=== PATIENT | male | born 1955 | race Caucasian/White ===

== ENCOUNTER → 2017-10-18 | Outpatient (CLI) | payer OTHER ==
[~2017-10-18] MED LIST: REGADENOSON 0.4 MG/5 ML SYRINGE IV ONE
--- NOTE | 2017-10-18 11:31 | NM ---
EXAMINATION TYPE: NM stress lexiscan cardiolite DATE OF EXAM: 10/18/2017 COMPARISON: NONE HISTORY: Chest pain and hypertension per order. Additional history of tobacco use, diabetes, hypercho lesterolemia, and family history of coronary artery disease with difficulty in breathing per patient. TECHNIQUE: After the intravenous administration of 10 mCi Tc 99m Sestamibi - Cardiolite resting SPEC T images acquired 45 minutes post injection. The patient received 0.4mg Lexiscan, 25.7 mCi Tc 99m Sestamibi - Stress images obtained [address] injection FINDINGS: Review of stress and rest SPECT images demonstrates no distinct perfusion abnormality. Gated analysi s shows normal wall motion with an estimated left ventricular ejection fraction of 65 %. IMPRESSION: No scintigraphic evidence for reversible ischemia.
--- NOTE | 2017-10-18 14:10 | EST ---
EXERCISE STRESS AGE: 61 SEX: M HT: 5'11" WT: 194 PROTOCOL: Lexiscan Cardiolite Study HEART RATE REST: 69 BLOOD PRESSURE REST: 130/79 MAXIMUM HEART RATE ACHIEVED: 105 MAXIMUM BLOOD PRESSURE: 130/79 85% MPHR: 134 100% MPHR: 158 INDICATIONS: Family history. CLINICAL INFORMATION: Pretesting physical examination showed heart rate of 69, pressure is 130/79 mmHg. Baseline EKG shows sinus mechanism; 0.4 mg of Lexiscan was given over 15 seconds per protocol. The max heart rate was 105 beats per minute and maximum pressure was 130/79 mmHg. Clinically, the patient did not have any symptoms of chest pain or discomfort and the EKG did not show any significant ST or T-wave abnormalities concerning for ischemia. CONCLUSION: 1. Nondiagnostic electrocardiogram stress testing in response to Lexiscan. 2. Please follow up on the Cardiolite portion on separate report from Radiology Department. MMODL / IJN: [id number] /
== END | disposition home or self-care (01) ==
LOC: RADNMMAIN 08:08
PROVIDERS: ATTEND Internal Medicine
DX: R07.9 Chest pain, unspecified (principal); I10 Essential (primary) hypertension
CPT/HCPCS: 93017; 78452; A9500; J2785

== ENCOUNTER 2018-05-02 06:43 | Day surgery (SDC) | payer OTHER ==
[2018-04-30 14:58] VITALS: BMI 27.9
[~2018-05-02 06:43] MED LIST changes: +LACTATED RINGERS 1,000 ML IV SCH; -REGADENOSON 0.4 MG/5 ML SYRINGE IV ONE
[2018-05-02 07:18] VITALS: TEMP 97
[2018-05-02] MEDS ORDERED: LACTATED RINGERS 1,000 ML IV ONE (07:21)
[2018-05-02 07:22] LABS: Glucose,Whole Blood 119 mg/dL (75-99)
[2018-05-02] MEDS ORDERED: PROPOFOL 10 MG/ML 20 ML VIAL IV ONE (07:31)
--- NOTE | 2018-05-02 08:01 | P.PCN ---
Date of Procedure: 05/02/18 Procedure(s) Performed: BRIEF HISTORY: Patient is a 62-year-old pleasant male, scheduled for an elective colonoscopy as a part of evaluation of intermittent rectal bleeding for the last 2 months duration. ROCEDURE PERFORMED: Colonoscopy snare polypectomy . PREOPERATIVE DIAGNOSIS: rectal bleeding of 2 months duration IV sedation per Anesthesia. PROCEDURE: After informed consent was obtained, the patient, was brought into the endoscopy unit. IV sedation was administered by Anesthesia under continuous monitoring. Digital rectal examination was normal. Initially the Olympus CF- 160 flexible video colonoscope was then inserted in the rectum, gradually advanced into the cecum without any difficulty. Careful examination was performed as the scope was gradually being withdrawn. Ileocecal valve and the appendiceal orifice were visualized and appeared normal. Prep was excellent. Mucosa of the cecum, appeared normal. In the ascending colon there was a 1 cm flat polyp removed by snare polypectomy. The rest of theascending colon, transverse colon, descending colon, sigmoid colon, and rectum appeared normal. in the mid rectum there were 2 sessile ,5 mm polyps removed by snare polypectomy. diffuse diverticulosis noted.Retroflexion was performed in the rectum ansmall internal hemorrhoidsere seen. The patient tolerated the procedure well. IMPRESSION: 1 cm flat ascending colon polyp status post snare polypectomy 5 mm 2 mid rectal polyps status post snare polypectomy Diffuse scattered diverticulosis Small internal hemorrhoids RECOMMENDATIONS: Findings of this examination were discussed with the patient as well as his family. He was advised to follow with the biopsy results. If the biopsy shows adenoma, he can have a repeat colonoscopy in 5 years
[2018-05-02 08:02] VITALS: RESP 16
[2018-05-02 08:22] VITALS: BP 124/77; PULSE 86
== END 2018-05-02 08:59 | disposition home or self-care (01) ==
LOC: ORWHC2ENDO 06:43
PROVIDERS: ATTEND Internal Medicine Gastroenterology
DX: K63.5 Polyp of colon (principal); K62.1 Rectal polyp; K57.30 Diverticulosis of large intestine without perforation or abscess without bleeding; K64.8 Other hemorrhoids; I10 Essential (primary) hypertension; E78.5 Hyperlipidemia, unspecified; F17.210 Nicotine dependence, cigarettes, uncomplicated; Z79.84 Long term (current) use of oral hypoglycemic drugs; Z79.899 Other long term (current) drug therapy
CPT/HCPCS: 88305; 45385; J2704

== ENCOUNTER → 2018-10-31 | Outpatient (CLI) | payer OTHER ==
--- NOTE | 2018-10-31 20:27 | US ---
EXAMINATION TYPE: US carotid duplex BILAT DATE OF EXAM: 10/31/2018 COMPARISON: NONE CLINICAL HISTORY: 62-year-old male R09.89 carotid bruit. TECHNIQUE: Carotid duplex ultrasound examination. Indirect Doppler criteria is utilized. FINDINGS: EXAM MEASUREMENTS: RIGHT: Peak Systolic Velocity (PSV) cm/sec ----- Right CCA: 99.9 ----- Right ICA: 139 ----- Right ECA: 215 ICA/CCA ratio: 1.4 RIGHT: End Diastole cm/sec ----- Right CCA: 21.7 ----- Right ICA: 33.4 ----- Right ECA: 14.7 LEFT: Peak Systolic Velocity (PSV) cm/sec ----- Left CCA: 135 ----- Left ICA: 121 ----- Left ECA: 157 ICA/CCA ratio: .9 LEFT: End Diastole cm/sec ----- Left CCA: 28 ----- Left ICA: 32 ----- Left ECA: 13.2 VERTEBRALS (direction of flow): Right Vertebral: Antegrade Left Vertebral: Antegrade Rhythm: Normal IMPRESSION: Mildly elevated velocities in the right ICA probably on the basis of turbulence rather than a moderat e (50-69%) ICA stenosis as no significant atherosclerotic narrowing is appreciated on grayscale image s. Criteria for Assigning % of Stenosis / Diameter reduction (Estimation based on the indirect measurements of the internal carotid artery velocities (ICA PSV). 1. Normal (no stenosis)=ICA PSV < 125 cm/s: ratio < 2.0: ICA EDV<40 cm/s. 2. Less than 50% stenosis=ICA PSV < 125 cm/s: ratio < 2.0: ICA EDV<40 cm/s. 3. 50 to 69% stenosis=ICA PSV of 125 to 230 cm/s: ration 2.0 ? 4.0: ICA EDV 40-100 cm/s. 4. Greater than 70% stenosis to near occlusion= ICA PSV > 230 cm/s: ratio > 4.0: ICA EDV > 100 cm/s. 5. Near occlusion= ICA PSV velocities may be low or undetectable: variable ratio and ICA EDV. 6. Total occlusion=unable to detect flow.
== END | disposition home or self-care (01) ==
LOC: RADUSWWP 15:37
PROVIDERS: ATTEND Internal Medicine
DX: R09.89 Other specified symptoms and signs involving the circulatory and respiratory systems (principal)
CPT/HCPCS: 93880

== ENCOUNTER 2020-09-11 | Emergency (ER) | payer OTHER | END 2020-09-11 11:56 | disposition home or self-care (01) ==

== ENCOUNTER → 2020-10-17 | Outpatient (CLI) | payer OTHER ==
[2020-10-17 11:47] LABS: HCT 50.7 % (39.0-53.0); HGB 16.7 gm/dL (13.0-17.5); MCH 33.1 pg (25.0-35.0); MCHC 32.9 g/dL (31.0-37.0); MCV 100.4 fL (80.0-100.0); Macrocytosis Slight; Mean Platelet Volume 8.3; Platelet Count 194 k/uL (150-450); RBC 5.04 m/uL (4.30-5.90); RDW 13.9 % (11.5-15.5); WBC 9.5 k/uL (3.8-10.6)
[2020-10-17 12:00] LABS: African American GFR (CKD) >90 (>60 ml/min/1.73 sqM); Anion Gap 8 mmol/L; Blood Urea Nitrogen 13 mg/dL (9-20); Carbon Dioxide 29 mmol/L (22-30); Chloride 99 mmol/L (98-107); Non-African American GFR(CKD) >90 (>60 ml/min/1.73 sqM); Potassium 4.5 mmol/L (3.5-5.1); Sodium 136 mmol/L (137-145)
[2020-10-20 11:42] LABS: Folate, Serum 21.2 ng/mL
== END | disposition home or self-care (01) ==
LOC: LABPAT 11:23
PROVIDERS: ATTEND Internal Medicine Cardiovascular Disease
DX: Z01.812 Encounter for preprocedural laboratory examination (principal); I35.2 Nonrheumatic aortic (valve) stenosis with insufficiency
CPT/HCPCS: 80051; 82565; 82607; 82746; 84520; 85027

== ENCOUNTER 2020-10-24 09:17 | Day surgery (SDC) | payer OTHER ==
[2020-10-19 14:54] VITALS: BMI 28.5
[2020-10-24 09:53] VITALS: TEMP 98.8
[2020-10-24 09:53] LABS: Glucose,Whole Blood 149 mg/dL (75-99)
[2020-10-24] MEDS ORDERED: SODIUM CHLORIDE 0.9% 500 ML 500 ML IV ONE (09:53)
[2020-10-24] MEDS: BENZOCAINE SPRAY 1 CAN MUCOUS MEM ONE ×2 (10:50→10:58)
[2020-10-24] MEDS ORDERED: MIDAZOLAM 2 MG/2 ML VIAL IV ONE (10:58)
[2020-10-24] MEDS ORDERED: fentaNYL (PF) 50 MCG/ML 2 ML AMP IV ONE (10:58)
[2020-10-24 11:10] VITALS: RESP 13
[2020-10-24] MEDS ORDERED: SODIUM CHLORIDE 0.9% 1,000 ML IV SCH (11:15)
[2020-10-24 12:17] VITALS: BP 142/54; PULSE 92
--- NOTE | 2020-10-24 12:28 | ECHOT ---
TRANSESOPHAGEAL ECHOCARDIOGRAM Andres is a 64-year-old gentleman who presented to me with shortness of breath and aortic stenosis and regurgitation. Since we did not have any clear explanation for his symptoms, I advised him to undergo transesophageal echo to further assess the aortic valve. PROCEDURE NOTE: After obtaining informed consent, transesophageal echocardiogram was performed in left lateral position using an Omniplane probe. Local and IV sedation were obtained using Xylocaine spray, intravenous Versed and fentanyl. He tolerated the procedure well without any obvious immediate complications. Two-dimension color Doppler and spectral analysis were performed. FINDINGS: 1. AORTIC VALVE: Aortic valve appears to be a bicuspid valve which is calcified and shows moderate restriction in leaflet mobility. The calculated valve area is about 1.2 cm2. There is moderate to severe aortic regurgitation. Aortic root is not dilated. 2. Left atrium appears mildly enlarged. Right atrium and right ventricle seen within normal limits. Left ventricle shows left ventricular hypertrophy with normal LV systolic function. Mitral valve is anatomically normal. There is mild mitral regurgitation noted. Tricuspid valve shows mild tricuspid regurgitation. 3. INTERATRIAL SEPTUM: There is no evidence of proh-ct-vecst shunt by color-flow Doppler or zqlmq-wy-[id number] shunt by agitated saline contrast study. CONCLUSIONS: 1. Bicuspid aortic valve with mild aortic stenosis and moderate to severe aortic regurgitation. 2. Normal left ventricular size and systolic function. PLAN: I reviewed the JENNIFER findings with the patient and told his that I do not believe the shortness of breath is quite explained by the degree of aortic valvular disease we are seeing. I will perform pulmonary function tests on him and then decide on further course of action. MMODL / IJN: [id number] /
--- NOTE | 2020-10-24 13:51 | LTR ---
October 24, 2020 To: Dr. Lizama Re: Andres Davis (53) Dear Lexy, I performed transesophageal echocardiogram on Andres Davis. A detailed test is enclosed for your records. The patient has a bicuspid aortic valve with moderate to severe aortic regurgitation, mild aortic stenosis. The plan at this stage is to perform a pulmonary function test on him to see if his symptoms are explained by any underlying lung disease. Thank you for giving me the privilege of participating in the care of this pleasant gentleman. Sincerely, Victorino Wall M.D. CONSUELO / SABIHA: [id number] /
== END 2020-10-24 12:29 | disposition home or self-care (01) ==
LOC: CATHCVL 09:17
PROVIDERS: ATTEND Internal Medicine Cardiovascular Disease
DX: Q23.1 Congenital insufficiency of aortic valve (principal); E11.9 Type 2 diabetes mellitus without complications; I10 Essential (primary) hypertension; E78.5 Hyperlipidemia, unspecified; Z82.49 Family history of ischemic heart disease and other diseases of the circulatory system; F17.210 Nicotine dependence, cigarettes, uncomplicated; Z79.899 Other long term (current) drug therapy; Z79.82 Long term (current) use of aspirin
CPT/HCPCS: 93312; 93320; 93325; J2250; J3010

== ENCOUNTER 2020-11-09 08:02 | Day surgery (SDC) | payer OTHER ==
[~2020-11-09 08:02] MED LIST changes: +ALPRAZolam 0.25 MG TAB PO PRN; +ALPRAZolam 0.5 MG TAB PO PRN; +ASPIRIN 325 MG TAB PO STA; +HEPARIN SODIUM,PORCINE 10,000 UNIT in SODIUM CHLORIDE 0.9% 1,000 ML IRRIGATION PRN; +HEPARIN SODIUM,PORCINE 2,500 UNIT in SODIUM CHLORIDE 0.9% 250 ML IRRIGATION PRN; -LACTATED RINGERS 1,000 ML IV SCH; +NITROGLYCERIN SL TABS 0.4 MG TAB SUBLINGUAL PRN; +SODIUM CHLORIDE 0.9% 1,000 ML in EMPTY BAG 1 BAG IV ONE
[2020-11-09] MEDS ORDERED: ASPIRIN 81 MG ONE (08:10)
[2020-11-09] MEDS ORDERED: SODIUM CHLORIDE 0.9% 1,000 ML IV ONE (08:13)
[2020-11-09 08:29] LABS: Glucose,Whole Blood 131 mg/dL (75-99)
[2020-11-09] MEDS ORDERED: LIDOCAINE 1% INJ 10MG/ML (20 ML MDV) ONE (09:55)
[2020-11-09] MEDS ORDERED: fentaNYL (PF) 50 MCG/ML 2 ML AMP ONE (10:17)
[2020-11-09] MEDS: MIDAZOLAM 2 MG/2 ML VIAL IV ONE ×2 (10:21→10:49)
[2020-11-09] MEDS ORDERED: MIDAZOLAM 2 MG/2 ML VIAL IV ONE (10:21)
[2020-11-09] MEDS ORDERED: LIDOCAINE 1% INJ 10MG/ML (10 ML MDV) SQ ONE ×2 (10:21)
[2020-11-09] MEDS: fentaNYL (PF) 50 MCG/ML 2 ML AMP IV ONE ×2 (10:21→10:34)
[2020-11-09] MEDS ORDERED: HEPARIN SODIUM 1,000 UN/ML (10ML VL) ONE (10:35)
[2020-11-09] MEDS ORDERED: HEPARIN SODIUM 1,000 UN/ML (10ML VL) IV ONE (10:45)
[2020-11-09] MEDS ORDERED: NITROGLYCERIN 1000MCG/10ML SYRINGE INTRACORON ONE (10:56)
[2020-11-09] MEDS ORDERED: CLOPIDOGREL 75 MG TAB ONE (10:57)
[2020-11-09] MEDS ORDERED: IOPAMIDOL-370 125ML BTL INJ ONE (11:02)
[2020-11-09] MEDS ORDERED: CLOPIDOGREL 75 MG TAB PO ONE (11:02)
[2020-11-09] MEDS ORDERED: ATROPINE SULFATE 0.1 MG/ML 10ML SYRINGE IV PRN (13:33)
[2020-11-09] MEDS ORDERED: NITROGLYCERIN SL TABS 0.4 MG TAB SUBLINGUAL PRN (13:33)
[2020-11-09] MEDS ORDERED: RX INFO: IV CONTRAST WAS GIVEN 1 EACH MISC MISCELLANE PRN (13:33)
[2020-11-09] MEDS ORDERED: MAG HYDROX/AL HYDROX/SIMETH 30 ML CUP PO PRN (13:33)
[2020-11-09] MEDS ORDERED: ZOLPIDEM 5 MG TAB PO PRN (13:33)
[2020-11-09] MEDS ORDERED: SODIUM CHLORIDE 0.9% 1,000 ML IV SCH (13:45)
--- NOTE | 2020-11-09 13:55 | CC ---
CARDIAC CATHETERIZATION REPORT INDICATION: This is a 64-year-old gentleman with multiple coronary risk factors who presented to me with symptoms of shortness of breath. His stress test did not reveal ischemia and an echocardiogram showed normal LV function with aortic regurgitation. He went on to have a transesophageal echo that showed moderate to severe aortic regurgitation not bad enough to explain his shortness of breath. On followup, he told me that he was becoming progressively more short of breath due to which I advised him to undergo cardiac catheterization to rule out the possibility that his shortness of breath is anginal equivalent. The patient had been explained of risks, benefits and alternatives understood and accepted. PROCEDURE NOTE: After obtaining informed consent, left heart catheterization and coronary angiogram were performed via the right femoral artery using standard Joceline catheters. The patient tolerated the procedure well without any obvious immediate complications. Patient received moderate conscious sedation. Total sedation time was 15 minutes. FINDINGS: HEMODYNAMICS: Left ventricular end-diastolic pressure is 14-16 mm. There is no significant gradient across the aortic valve. LEFT VENTRICULOGRAM: Not performed. ANGIOGRAPHIC DATA: LEFT MAIN CORONARY ARTERY: Left main coronary artery is a normal-sized vessel and is free of stenosis. Divides into left anterior descending coronary artery and circumflex coronary artery. LEFT ANTERIOR DESCENDING CORONARY ARTERY: LAD shows a moderate area of stenosis in its midportion. Both the ramus intermedius and circumflex coronary artery are free of significant disease. RIGHT CORONARY ARTERY: Right coronary artery is a small nondominant vessel that is free of significant disease. CONCLUSION: 50-70% stenosis involving the mid LAD. PLAN: The patient will undergo FFR and if this comes out significant, we will undergo angioplasty with stent placement. MMODL / IJN: [id number] /
[2020-11-09] MEDS ORDERED: ACETAMINOPHEN TAB 325 MG TAB ONE (15:10)
--- NOTE | 2020-11-09 16:47 | PTCA ---
PERCUTANEOUSTRANS CORORONARY ANGIOGRAPHY DATE OF SERVICE: November 09, 2020. PERFORMING PHYSICIAN: Nick Pruett MD. PROCEDURE PERFORMED: 1. Fractional flow reserve of the left anterior descending artery. 2. Successful stenting of the mid left anterior descending artery using 3.25 x 18 mm Xience TAMEKA with an excellent angiographic result and reduction of stenosis from 70% to 0%. 3. Selective right common femoral artery angiogram. INDICATION: This is a 64-year-old gentleman who sees Dr. Wall in the office, with hypertension, and dyslipidemia, was experiencing symptoms of shortness of breath with exertion. He underwent earlier today a heart catheterization and that revealed intermediate lesion in the mid LAD and decision was made towards FFR of the LAD with coronary intervention. APPROACH: Right common femoral artery. COMPLICATION: None. LEVEL OF SEDATION: Moderate with sedation length of 30 minutes. PROCEDURE DESCRIPTION: Please refer to diagnostic heart catheterization was performed by Dr. Wall earlier today. Anticoagulation was initiated using heparin with continuous ACT monitoring throughout the procedure. Subsequently, and after zeroing the Doppler wire and equalizing between the Doppler wire and the guiding catheter which was JL4 guiding catheter, we did an IFR and that came in to be ischemic at 0.70. Because of that, we decided to intervene on the LAD. After assuring that the ACT is therapeutic, I did balloon angioplasty of the lesion using 3.0 x 12 mm balloon before I deployed 3.25 x 18 mm Xience drug-eluting stent where the stent was positioned under fluoroscopy guidance and deployed under 16 atmospheres for 20 seconds. The following angiogram showed excellent angiographic results. The procedure was completed without any complication. POSTPROCEDURE MANAGEMENT: 1. Dual anti-platelet therapy. 2. Aggressive cholesterol control. 3. Coronary risk factor modification. 4. Follow up with the patient. MMODL / IJN: [id number] /
[2020-11-09 17:49] LABS: Glucose,Whole Blood 170 mg/dL (75-99)
[2020-11-09 20:16] LABS: Glucose,Whole Blood 230 mg/dL (75-99)
[2020-11-09] MEDS: LINAGLIPTIN 5 MG TABLET PO SCH (20:16)
[2020-11-09] MEDS: NICOTINE 14MG/24HR PATCH TRANSDERM SCH (20:16)
[2020-11-10 06:58] VITALS: BP 130/84; PULSE 88; RESP 18; TEMP 98.3
[2020-11-10 07:29] LABS: Glucose,Whole Blood 127 mg/dL (75-99)
[2020-11-10 07:43] LABS: Basophils # (A) 0.1 k/uL (0-0.2); Basophils % (A) 1 %; Eosinophils # (A) 0.1 k/uL (0-0.7); Eosinophils % (A) 2 %; HGB 15.9 gm/dL (13.0-17.5); Lymphocytes # (A) 1.4 k/uL (1.0-4.8); Lymphocytes % (A) 16 %; MCH 33.5 pg (25.0-35.0); MCHC 33.8 g/dL (31.0-37.0); MCV 99.3 fL (80.0-100.0); Mean Platelet Volume 8.4; Monocytes # (A) 0.7 k/uL (0-1.0); Monocytes % (A) 8 %; Neutrophils # (A) 6.2 k/uL (1.3-7.7); Neutrophils % (A) 72 %; Platelet Count 194 k/uL (150-450); RBC 4.74 m/uL (4.30-5.90); RDW 13.8 % (11.5-15.5); WBC 8.6 k/uL (3.8-10.6)
[2020-11-10 08:01] LABS: African American GFR (CKD) >90 (>60 ml/min/1.73 sqM); Anion Gap 4 mmol/L; Blood Urea Nitrogen 8 mg/dL (9-20); Calcium 9.5 mg/dL (8.4-10.2); Carbon Dioxide 30 mmol/L (22-30); Chloride 103 mmol/L (98-107); Glucose 143 mg/dL (74-99); Non-African American GFR(CKD) >90 (>60 ml/min/1.73 sqM); Potassium 4.3 mmol/L (3.5-5.1); Sodium 137 mmol/L (137-145)
[2020-11-10] MEDS ORDERED: lisinopriL 5 MG TAB PO SCH (09:00)
[2020-11-10] MEDS ORDERED: PIOGLITAZONE 45 MG TAB PO SCH (09:00)
[2020-11-10] MEDS ORDERED: CLOPIDOGREL 75 MG TAB PO SCH (09:00)
[2020-11-10] MEDS ORDERED: NON FORMULARY DRUG (Empagliflozin [Jardiance] 25 MG Tablet) PO SCH (09:00)
[2020-11-10] MEDS ORDERED: ASPIRIN 81 MG PO SCH (09:00)
[2020-11-10] MEDS ORDERED: GLIMEPIRIDE 1 MG TAB PO SCH (09:00)
[2020-11-10] MEDS ORDERED: ATORVASTATIN 80 MG TAB PO SCH (09:00)
[2020-11-10] MEDS: LINAGLIPTIN 5 MG TABLET PO SCH (10:06)
[2020-11-10] MEDS: NICOTINE 14MG/24HR PATCH TRANSDERM SCH (10:08)
[2020-11-10 11:37] VITALS: BMI 28.1
--- NOTE | 2020-11-10 11:43 | P.DS ---
Providers Attending physician: Victorino Wall Consults: 11/09/20 13:33 Consult Physician Routine Consulting Provider: [facility] Consult Reason/Comments: Post Interventional patient Do you want consulting provider notified?: Already Contacted Primary care physician: Dl Pugh [facility] Hospital Course: This is a 64-year-old male who underwent cardiac catheterization yesterday with Dr. Cho. Patient also underwent PCI of the LAD by Dr. Martins. The patient is doing well post procedure with no complications. Patient's right groin is soft with no hematoma noted. His vital signs are stable. The patient was deemed stable for discharge home today per Dr. Cho. He is to follow up on an outpatient basis. Please see EMR for further hospital course details. Discharge diagnosis Coronary artery disease, status post PCI of LAD Nurse practitioner note has been reviewed by physician. Signing provider agrees with the documented findings, assessment, and plan of care. Plan - Discharge Summary Discharge Rx Participant: Yes New Discharge Prescriptions: New Atorvastatin [Lipitor] 80 mg PO DAILY #90 tab Clopidogrel [Plavix] 75 mg PO DAILY #90 tab Nitroglycerin Sl Tabs [Nitrostat] 0.4 mg SUBLINGUAL Q5M PRN #100 tab PRN Reason: Chest Pain Nicotine 14Mg/24Hr Patch [Habitrol] 1 patch TRANSDERM DAILY #14 patch Continue lisinopriL [Zestril] 5 mg PO QAM Aspirin 81 mg PO DAILY Discontinued Rosuvastatin Calcium [Crestor] 40 mg PO DAILY No Action Pioglitazone [Actos] 45 mg PO QAM Glimepiride [Amaryl] 1 mg PO QAM sitaGLIPtin PHOS/metFORMIN HCL [Janumet 50-1,000 mg Tablet] 1 each PO BID Empagliflozin [Jardiance] 25 mg PO QAM Discharge Medication List Glimepiride [Amaryl] 1 mg PO QAM 04/30/18 [History] Pioglitazone [Actos] 45 mg PO QAM 04/30/18 [History] lisinopriL [Zestril] 5 mg PO QAM 04/30/18 [History] Aspirin 81 mg PO DAILY 10/19/20 [History] Empagliflozin [Jardiance] 25 mg PO QAM 10/19/20 [History] sitaGLIPtin PHOS/metFORMIN HCL [Janumet 50-1,000 mg Tablet] 1 each PO BID 10/19/20 [History] Atorvastatin [Lipitor] 80 mg PO DAILY #90 tab 11/10/20 [Rx] Clopidogrel [Plavix] 75 mg PO DAILY #90 tab 11/10/20 [Rx] Nicotine 14Mg/24Hr Patch [Habitrol] 1 patch TRANSDERM DAILY #14 patch 11/10/20 [Rx] Nitroglycerin Sl Tabs [Nitrostat] 0.4 mg SUBLINGUAL Q5M PRN #100 tab 11/10/20 [Rx] Follow up Appointment(s)/Referral(s): [facility] [NON-STAFF] - 1 Week Victorino Wall MD [STAFF PHYSICIAN] - 1 Week Patient Instructions/Handouts: [facility]iac [facility] ([facility]) Activity/Diet/Wound Care/Special Instructions: Hold Janumet for 48 hours
[2020-11-12] MEDS ORDERED: metFORMIN 500 MG TAB PO SCH (09:00)
== END 2020-11-10 12:07 | disposition home or self-care (01) ==
LOC: CATHCVL 08:02 → 6NMEDSUR 11:07 → CATHCVL 11-10 12:07
PROVIDERS: ATTEND Internal Medicine Cardiovascular Disease
DX: I25.10 Atherosclerotic heart disease of native coronary artery without angina pectoris (principal); I35.1 Nonrheumatic aortic (valve) insufficiency; R06.02 Shortness of breath; E11.9 Type 2 diabetes mellitus without complications; I10 Essential (primary) hypertension; E78.5 Hyperlipidemia, unspecified; F17.210 Nicotine dependence, cigarettes, uncomplicated
CPT/HCPCS: 93571; 93458; 80048; 85025; C9600; C1769 ×2; C1887; C1894 ×2; C1874; S4990; J2250; J3010; J1644; J2001; Q9967

== ENCOUNTER → 2022-08-11 | Outpatient (CLI) | payer MEDICARE, BC ==
[2022-08-12 09:26] LABS: Chol/HDL Ratio 2.58 Ratio; LDL Cholesterol,Calculated 62.7 mg/dL (0.0-131.0)
[2022-08-12 09:48] LABS: ALT 19 U/L (10-49); AST 22 U/L (14-35)
== END | disposition home or self-care (01) ==
LOC: LABWHC1 08:28
PROVIDERS: ATTEND Internal Medicine Cardiovascular Disease
DX: E78.2 Mixed hyperlipidemia (principal)
CPT/HCPCS: 36415; 80061; 84450; 84460

== ENCOUNTER → 2023-02-02 | Outpatient (CLI) | payer MEDICARE, BC ==
[2023-02-02 13:08] LABS: Basophils # (A) 0.06 X 10*3/uL (0.00-0.10); Basophils % (A) 0.9 %; Eosinophils # (A) 0.17 X 10*3/uL (0.04-0.35); Eosinophils % (A) 2.5 %; HCT 52.6 % (39.6-50.0); HGB 17.3 g/dL (13.0-17.0); Lymphocytes # (A) 1.18 X 10*3/uL (0.90-5.00); Lymphocytes % (A) 17.3 %; MCH 33.5 pg (27.0-32.0); MCHC 32.9 g/dL (32.0-37.0); MCV 101.7 FL (80.0-97.0); Monocytes # (A) 0.82 X 10*3/uL (0.20-1.00); NRBC Per 100 WBC 0 X 10*3/uL (0.00-0.01); Neutrophils # (A) 4.55 X 10*3/uL (1.80-7.70); Neutrophils % (A) 66.6 %; Platelet Count 189 X 10*3/uL (140-440); RBC 5.17 X 10*6/uL (4.40-5.60); RDW 15.4 % (11.5-14.5); WBC 6.83 X 10*3/uL (4.50-10.00)
[2023-02-02 13:30] LABS: ALT 21 U/L (10-49); AST 22 U/L (14-35); Albumin 4.7 g/dL (3.8-4.9); Albumin/Globulin Ratio 1.81 Ratio (1.60-3.17); Alkaline Phosphatase 97 U/L (41-126); Blood Urea Nitrogen 13.6 mg/dL (9.0-27.0); Calcium 10.3 mg/dL (8.7-10.3); Carbon Dioxide 29.3 mmol/L (21.6-31.8); Chloride 97 mmol/L (96-109); Chol/HDL Ratio 2.06 Ratio; Globulin 2.6 g/dL (1.6-3.3); Glucose 115 mg/dL (70-110); Prostate Specific Antigen 0.65 ng/mL (0.000-4.500); Sodium 141 mmol/L (135-145); T4, Free (Free Thyroxine) 1.15 ng/dL (0.80-1.80); Total Bilirubin 0.6 mg/dL (0.3-1.2); Total Protein 7.3 g/dL (6.2-8.2)
== END | disposition home or self-care (01) ==
LOC: LABWHC1 07:58
PROVIDERS: ATTEND Family Medicine
DX: Z12.5 Encounter for screening for malignant neoplasm of prostate (principal); E78.5 Hyperlipidemia, unspecified
CPT/HCPCS: 36415; 80053; 80061; 83036; 84153; 84439; 84443; 85025

== ENCOUNTER → 2024-07-07 | Outpatient (CLI) | payer MEDICARE ==
--- NOTE | 2024-07-07 16:17 | XR ---
"EXAMINATION TYPE: XR chest 2V DATE OF EXAM: 07/07/2024 4:10 PM COMPARISON: Chest radiographs from 09/11/2020 TECHNIQUE: XR chest 2V Frontal and lateral views of the chest. CLINICAL INDICATION:Male, 68 years old with history of R04.2 HEMOPTYSIS; FINDINGS: Lungs/Pleura: No pneumothorax. No pleural effusion. The left lung is clear. Large masslike opacity wi thin the right upper to mid lung measuring 11.4 x 9.4 cm with surrounding opacities. Additionally the re is a masslike consolidation within the right perihilar region. Pulmonary vascularity: Unremarkable. Heart/mediastinum: The heart is not enlarged. Atherosclerotic calcifications are seen in the aorta. Musculoskeletal: No acute osseous pathology. IMPRESSION: Large right lung pulmonary mass with additional right perihilar masslike opacity. Findings concerning for primary lung malignancy/metastasis until proven otherwise. Further workup is recommended. Recomm end further evaluation with CT chest with IV contrast. A [place] level critical message alert has been initiated for Neo Guardado MD via the [place] [address] 0 | Critical Results System on 07/07/2024 4:14 PM. This message alert has been sent to Neo Guardado MD via the preferences provided by the clinician for the receipt of Radiology Critical Findings. Mess age ID [id number]. [facility], , 07/07/2024 4:14 PM"
== END | disposition home or self-care (01) ==
LOC: RADXRMAIN 16:02
PROVIDERS: ATTEND Family Medicine
DX: R04.2 Hemoptysis (principal); R91.8 Other nonspecific abnormal finding of lung field
CPT/HCPCS: 71046

== ENCOUNTER → 2024-07-08 | Outpatient (CLI) | payer MEDICARE ==
[2024-07-08 15:51] LABS: African American GFR (CKD) >90 (>60 ml/min/1.73 sqM); Blood Urea Nitrogen 24 mg/dL (9-20); Non-African American GFR(CKD) >90 (>60 ml/min/1.73 sqM)
--- NOTE | 2024-07-08 16:53 | CT ---
EXAMINATION TYPE: CT chest w con CT DLP: 577 mGycm, Automated exposure control for dose reduction was used. DATE OF EXAM: 07/08/2024 4:40 PM COMPARISON: Chest radiograph 07/07/2024 CLINICAL INDICATION:Male, 68 years old with history of R91.8 OTHER NONSPECIFIC ABNORMAL FINDING OF ALEXIA NG F; PHH, abnormal chest xray TECHNIQUE: Multiple axial images were obtained through the chest following the administration of 100 cc of Isovue 300. . Coronal and sagittal reformats reviewed. FINDINGS: LUNGS/ PLEURA: No pleural effusion or pneumothorax. Mild centrilobular emphysematous changes. Large l oculated masslike consolidation withe fluid and foci of gas within the right upper lobe. This measure s grossly 12.4 x 9.0 cm and extends towards the right hilum. Additional satellite nodularity superior ly. There is surrounding patchy groundglass and consolidative opacities within the right upper lobe. Few scattered pulmonary nodules with examples including a left lower lobe subpleural 3.8 mm nodule. A nd a right middle lobe 3.9 mm pulmonary nodule. Peripheral left upper lobe 4.8 mm pulmonary nodule. Pleural-based right lower lobe 1.2 mm solid pulmonary nodule. Additional peripheral left lower lobe c onsolidative opacity measuring up to 3.7 cm. AIRWAY: Patent and unremarkable.. HEART: Size within normal limits.Moderate aortic valvular calcifications. No pericardial effusion. Mi ld to moderate coronary artery calcifications present. MEDIASTINUM: Enlarged low-density right hilar lymph node measuring up to 1.4 cm. VASCULATURE: No aortic aneurysm. Atherosclerotic calcification of the aorta and its branches. MUSCULOSKELETAL: Mild disc degeneration changes are present throughout the thoracolumbar spine. No ag gressive osseous lesion. No acute osseous abnormality. At least moderate disc degenerative changes of the visualized cervical spine. SOFT TISSUES/LYMPH NODES: Bilateral gynecomastia. LOWER NECK: No significant findings. UPPER ABDOMEN: Hypodense 2.3 cm lesion within the right hepatic lobe centrally near the IVC (series 3 , image 63). Asymmetric thickening of the right adrenal gland compared to the left. IMPRESSION: 1. Right upper lobe pulmonary masslike consolidation with regions of fluid and gas. Etiologies includ e necrotic primary lung neoplasm with superimposed infectious process versus irregular pulmonary absc ess. There is surrounding consolidative and groundglass airspace opacities within the right upper lob e and adjacent nodularity suggesting infectious process. Additional few scattered pulmonary nodules c oncerning for metastasis. Left lower lobe peripheral wedge-shaped consolidative opacity which may rep resent metastasis versus infectious/inflammatory process or atelectasis. Recommend further evaluation with PET/CT and/or tissue sampling. 2. Right hepatic lobe central 2.3 cm hypodense lesion not consistent with a simple cyst. Additional a symmetric thickening of the right adrenal gland and right hilar hypodense enlarged lymph node. Raises concern for metastasis. [facility], , 07/08/2024 4:51 PM
== END | disposition home or self-care (01) ==
LOC: RADCTMAIN 14:56
PROVIDERS: ATTEND Family Medicine
DX: R91.8 Other nonspecific abnormal finding of lung field (principal); K76.89 Other specified diseases of liver; E27.9 Disorder of adrenal gland, unspecified
CPT/HCPCS: 82565; 84520; 71260; 36415; Q9967

== ENCOUNTER 2024-07-16 15:04 | Inpatient (IN) | payer MEDICARE ==
[2024-07-16] MEDS: LACTATED RINGERS 1,000 ML IV SCH (15:04)
[2024-07-16] MEDS ORDERED: VANCOMYCIN IV PER PHARMACY 1 EACH MISC MISCELLANE PRN (15:20)
--- NOTE | 2024-07-16 15:24 | ED ---
General Adult HPI - General Chief complaint: Dizziness Stated complaint: pre-op abn labs Source: patient, RN/MD Mode of arrival: wheelchair - History of Present Illness Initial comments: Patient is a 58-year-old gentleman past medical history hypertension, diabetes, CAD presenting today from the outpatient procedure center for hypotension. Patient was there about to have a bronchoscopy performed for a right lung mass when he was found to be hypotensive. Patient states that his only symptom is dizziness that he noted upon getting out of the car and the way to the ER earlier today. He states he has had a cough productive of bloody sputum since June. As well as ongoing shortness of breath since that time. He denies new symptoms, fevers, chills, chest pain, abdominal pain, nausea, vomiting, cough productive of sputum, melena, hematochezia, new wounds or sores. He did take his lisinopril this morning. He has not eaten since last night. He has had decreased intake for the last 2 months. - Related Data Home Medications Medication Instructions Recorded Confirmed Glimepiride [Amaryl] 1 mg PO HS 04/30/18 07/16/24 Pioglitazone [Actos] 45 mg PO DAILY 04/30/18 07/16/24 Aspirin 81 mg PO DAILY 10/19/20 07/16/24 Empagliflozin [Jardiance] 25 mg PO DAILY 10/19/20 07/16/24 Atorvastatin [Lipitor] 80 mg PO HS 07/14/24 07/16/24 Albuterol Sulfate [Albuterol 2 puff INHALATION RT-Q4H PRN 07/16/24 07/16/24 Sulfate Hfa] Previous Rx's Medication Instructions Recorded Acetaminophen Tab [Tylenol] 650 mg PO Q6HR PRN tab 07/20/24 Calcium Carbonate [Tums] 1,000 mg PO Q4HR PRN tab 07/20/24 Famotidine [Pepcid] 20 mg PO BID #60 tab 07/20/24 Folic Acid 1 mg PO DAILY #30 tab 07/20/24 Mag Hydrox/Al Hydrox/Simeth 15 ml PO Q6HR PRN ml 07/20/24 [Maalox] Nicotine 14Mg/24Hr Patch [Habitrol] 1 patch TRANSDERM DAILY #30 patch 07/20/24 Ciprofloxacin HCl [Cipro] 500 mg PO BID 7 Days #14 tab 07/21/24 Allergies Allergy/AdvReac Type Severity Reaction Status Date / Time No Known Allergies Allergy Verified 07/16/24 17:37 Review of Systems ROS Statement: Those systems with pertinent positive or pertinent negative responses have been documented in the HPI. ROS Other: All systems not noted in ROS Statement are negative. Past Medical History Past Medical History: Diabetes Mellitus, Hyperlipidemia, Hypertension Additional Past Medical History / Comment(s): bleeding with stools several yrs. ago, Type II DM, difficulty breathing since 2024 after a "bad cold". right lung mass July 13 History of Any Multi-Drug Resistant Organisms: None Reported Past Surgical History: Heart Catheterization With Stent, Hernia Repair Additional Past Surgical History / Comment(s): BILATERAL CATARACT SURGERY, COLONOSCOPY, JENN[facility]ER 10/24, cardiac stent 2021 Past Anesthesia/Blood Transfusion Reactions: No Reported Reaction Additional Past Anesthesia/Blood Transfusion Reaction / Comment(s): no hx blood transfusion Date of Last Stent Placement:: 2021 Past Psychological History: No Psychological Hx Reported Smoking Status: Current every day smoker Past Alcohol Use History: None Reported, Occasional Past Drug Use History: None Reported, Marijuana - Past Family History Mother Family Medical History: Hyperlipidemia, Hypertension Brother(s) Family Medical History: Coronary Artery Disease (CAD) Additional Family Medical History / Comment(s): cardiac stent General Exam - General Exam Comments Initial Comments: PE: CONSTITUTIONAL: [no apparent distress, well appearing] SKIN: [warm, dry, no jaundice, hives or petechiae] EYES:[ pupils are equally round, extraocular movements intact without nystagmus, clear conjunctiva, non-icteric sclera] HENT: [normocephalic, atraumatic, moist mucus membranes, oropharynx clear witho ut exudates] NECK: , [Full range of motion, normal appearance] PULMONARY: [clear to auscultation without wheezes, rhonchi, or rales, normal excursion, no accessory muscle use and no stridor] CARDIOVASCULAR:[ regular rate, rhythm, normal S1 and S2. No appreciated murmurs, rubs or gallops. Strong radial pulses with intact distal perfusion. No lower extremity edema] GASTROINTESTINAL: [soft, active bowel sounds throughout, non-tender, non- distended, no palpable masses, no rebound or guarding. No hepatosplenomegaly] GENITOURINARY: MUSCULOSKELETAL: [Extremities have no gross deformity, no edema, redness, or swelling. No calf swelling ] NEUROLOGIC: [_a/o x 3, GCS 15, normal mentation and speech. Moves all extremities x 4 without motor or sensory deficit] PSYCHIATRIC:[ _normal mood and affect, thought process is clear and linear] Course Vital Signs 07/16/24 07/16/24 07/16/24 15:04 15:11 15:31 Temperature 97.6 F Pulse Rate 107 H 108 H 108 H Respiratory 22 22 22 Rate Blood Pressure 88/48 94/54 88/50 O2 Sat by Pulse 96 95 96 Oximetry 07/16/24 07/16/24 07/16/24 15:50 16:06 17:00 Temperature Pulse Rate 104 H 104 H 108 H Respiratory 20 20 18 Rate Blood Pressure 83/47 95/58 113/53 O2 Sat by Pulse 96 96 95 Oximetry 07/16/24 07/16/24 07/16/24 17:32 19:50 21:35 Temperature 97.7 F Pulse Rate 110 H 111 H 112 H Respiratory 20 20 20 Rate Blood Pressure 105/46 71/48 106/55 O2 Sat by Pulse 96 97 Oximetry 07/16/24 07/17/24 07/17/24 23:17 01:04 02:29 Temperature 98.6 F Pulse Rate 102 H 112 H 98 Respiratory 17 16 16 Rate Blood Pressure 104/51 95/48 98/53 O2 Sat by Pulse 96 95 96 Oximetry 07/17/24 03:39 Temperature Pulse Rate 98 Respiratory 16 Rate Blood Pressure 100/50 O2 Sat by Pulse 95 Oximetry EKG Findings - EKG Comments: EKG Findings:: Sinus tachycardia, rate 108 bpm [place] interval 133 ms QT/QTc 320/384 ms, T wave inversion lead V1, V2, aVR, no clear ST elevations or depressions, no STEMI Medical Decision Making - Medical Decision Making Was pt. sent in by a medical professional or institution (, PA, GUNSTOCK REPAIRER, urgent care, hospital, or detention...) When possible be specific @ -No Did you speak to anyone other than the patient for history (EMS, parent, family, police, friend...)? What history was obtained from this source @ -No Did you review nursing and triage notes (agree or disagree)? Why? @ -I reviewed nursing and triage notes Were old charts reviewed (outside hosp., previous admission, EMS record, old EKG, old radiological studies, urgent care reports/EKG's, detention records)? Report findings @ -Medical records reviewed-reviewed chest CT performed on 07/08/2024, showed lobulated mass in the right lung Differential Diagnosis (chest pain, altered mental status, abdominal pain women, abdominal pain men, vaginal bleeding, weakness, fever, dyspnea, syncope, headac he, dizziness, GI bleed, back pain, seizure, CVA, palpatations, mental health, musculoskeletal)? @ -Differential diagnosis remains broad however top considerations include hypotension secondary to infection/sepsis, hypovolemia, ACS, CHF, PE, electrolyte abnormality, renal failure, anemia/hemorrhage, medications, this is not inclusive list EKG interpreted by me (3pts min.). @ -As above X-rays interpreted by me (1pt min.). @ -None done CT interpreted by me (1pt min.). I personally reviewed CT chest I see no evidence of pulmonary embolism, right sided lung mass noted U/S interpreted by me (1pt. min.). @ -None done What testing was considered but not performed or refused? (CT, X-rays, U/S, lab s)? Why? @ -None What meds were considered but not given or refused? Why? @ -None Did you discuss the management of the patient with other professionals (professionals i.e. , PA, GUNSTOCK REPAIRER, lab, RT, psych nurse, social service director, operations and intelligence assistant, teacher, forest fire officer, leather case finisher)? Give summary @ -No Was smoking cessation discussed for >3mins.? @ -No Was critical care preformed (if so, how long)? @Yes 35 minutes Were there social determinants of health that impacted care today? How? (Homelessness, low income, unemployed, alcoholism, drug addiction, transportation, low edu. Level, literacy, decrease access to med. care, care home, rehab)? @ -No Was there de-escalation of care discussed even if they declined (Discuss DNR or withdrawal of care, Hospice)? @ -No What co-morbidities impacted this encounter? (DM, HTN, Smoking, COPD, CAD, Cancer, CVA, ARF, Chemo, Hep., AIDS, mental health diagnosis, sleep apnea, morbid obesity)? @Hypertension, smoking, diabetes, CAD Was patient admitted / discharged? Hospital course, mention meds given and route, prescriptions, significant lab abnormalities, going to OR and other pertinent info. @Admission -68-year-old gentleman presenting for hypotension noted at outpatient procedure facility where he was going to have a bronchoscopy done for a right sided lung mass. Patient hypotensive on arrival and received 1 L IV fluids prior to my assessment. On my reassessment blood pressure is 94/54 with a MAP of 68. He is currently in Trendelenburg position. Exam is overall benign without signs of infection. Differential demonstrates broad, top considerations as noted above. He will be given sepsis workup including 2.5 L of LR according to his 30 cc/kg bolus, Zosyn, vancomycin, CT PE study will be obtained. On reassessment, blood pressure stabilized after 2.5 LR lactated ringer, MAP of 83 on my reassessment. Coloring is improved. CT scan shows persistent mass in the right lung with increased size and nodules. White blood cell count 55,000, hemoglobin 11.1, troponin undetectable. Of note CT chest was ultimately read as no evidence of PE however redemonstration of the large right upper lobe pulmonary mass or consolidation with regions of fluid and gas with soft tissue, etiologies include necrotic primary lung neoplasm with superimposed infectious process versus irregular pulmonary abscess, surrounding consolidative and groundglass opacities within the right upper lobe and adjacent nodularity, increased size with few new scattered pulmonary nodules throughout the lung concerning for metastases as well as a right hepatic lobe central hypodense lesion, asymmetric thickening of the right adrenal gland and right hilar hypodense enlarged lymph node concerning for metastases. Updated pt and to findings and anticipated admission. Patient will be admitted for further workup and treatment. Case discussed with LIBRADO Larson who kindly accepts pt for admission. Undiagnosed new problem with uncertain prognosis? @ -No Drug Therapy requiring intensive monitoring for toxicity (Heparin, Nitro, Insulin, Cardizem)? @ -No Were any procedures done? @ -No Diagnosis/symptom? @ -Sepsis, lung mass, questionable pulmonary abscess Acute, or Chronic, or Acute on Chronic? @ acute Uncomplicated (without systemic symptoms) or Complicated (systemic symptoms)? @ complicated Side effects of treatment? @ -No Exacerbation, Progression, or Severe Exacerbation? @ -No Poses a threat to life or bodily function? How? (Chest pain, USA, MD, pneumonia, PE, COPD, DKA, ARF, appy, cholecystitis, CVA, Diverticulitis, Homicidal, Suicidal, threat to staff... and all critical care pts) @Yes, if left untreated could lead to septic shock and - Lab Data Result diagrams: 07/21/24 07:00 07/21/24 07:00 Lab Results 07/16/24 07/16/24 07/16/24 Range/Units 15:23 15:40 15:40 WBC 55.76 H* (4.50-10.00) 10*3/uL RBC 3.46 L (4.40-5.60) 10*6/uL Hgb 11.1 L (13.0-17.0) g/dL Hct 33.4 L (39.6-50.0) % MCV 96.5 (80.0-97.0) fL MCH 32.1 H (27.0-32.0) pg MCHC 33.2 (32.0-37.0) g/dL Plt Count 374 (140-440) 10*3/uL MPV 10.1 (9.5-12.2) fL Immature Gran % (Auto) 3.4 % Neutrophils % (Manual) 90 % Band Neuts % (Manual) 1 % Lymphocytes % (Manual) 4 % Monocytes % (Manual) 4 % Metamyelocytes % 1 % Myelocytes % 1 % Immature Gran # 1.92 H (0.00-0.04) 10*3/uL Neutrophils # (Manual) 50.74 H (1.3-7.7) k/uL Lymphocytes # (Manual) 2.23 (1.0-4.8) k/uL Monocytes # (Manual) 2.23 H (0-1.0) k/uL Metamyelocytes # (Man) 0.56 H (0) k/uL Myelocytes # (Manual) 0.56 H (0) k/uL Nucleated RBCs 0 (0-0) /100 WBC Manual Slide Review Performed Toxic Vacuolation Present Large Platelets Present Polychromasia Present PT 10.8 (10.0-12.5) sec INR 1.0 (<1.2) APTT 23.4 (22.0-30.0) sec Sodium (137-145) mmol/L Potassium (3.5-5.1) mmol/L Chloride (98-107) mmol/L Carbon Dioxide (22-30) mmol/L Anion Gap mmol/L BUN (9-20) mg/dL Creatinine (0.66-1.25) mg/dL Est GFR (CKD-EPI)AfAm (>60 ml/min/1.73 sqM) Est GFR (CKD-EPI)NonAf (>60 ml/min/1.73 sqM) Glucose (74-99) mg/dL Plasma Lactic Acid Biju (0.7-2.0) mmol/L Calcium (8.4-10.2) mg/dL Total Bilirubin (0.2-1.3) mg/dL AST (17-59) U/L ALT (4-49) U/L Alkaline Phosphatase (38-126) U/L Troponin I (0.000-0.034) ng/mL Total Protein (6.3-8.2) g/dL Albumin (3.5-5.0) g/dL Urine Color Urine Appearance (Clear) Urine pH (5.0-8.0) Ur Specific [place] (1.001-1.035) Urine Protein (Negative) Urine Glucose (UA) (Negative) Urine Ketones (Negative) Urine Blood (Negative) Urine Nitrite (Negative) Urine Bilirubin (Negative) Urine Urobilinogen (<2.0) mg/dL Ur Leukocyte Esterase (Negative) Influenza Type A (PCR) Not Detected (Not Detectd) Influenza Type B (PCR) Not Detected (Not Detectd) RSV (PCR) Not Detected (Not Detectd) SARS-CoV-2 (PCR) Not Detected (Not Detectd) 07/16/24 07/16/24 07/16/24 Range/Units 15:40 15:40 15:40 WBC (4.50-10.00) 10*3/uL RBC (4.40-5.60) 10*6/uL Hgb (13.0-17.0) g/dL Hct (39.6-50.0) % MCV (80.0-97.0) fL MCH (27.0-32.0) pg MCHC (32.0-37.0) g/dL Plt Count (140-440) 10*3/uL MPV (9.5-12.2) fL Immature Gran % (Auto) % Neutrophils % (Manual) % Band Neuts % (Manual) % Lymphocytes % (Manual) % Monocytes % (Manual) % Metamyelocytes % % Myelocytes % % Immature Gran # (0.00-0.04) 10*3/uL Neutrophils # (Manual) (1.3-7.7) k/uL Lymphocytes # (Manual) (1.0-4.8) k/uL Monocytes # (Manual) (0-1.0) k/uL Metamyelocytes # (Man) (0) k/uL Myelocytes # (Manual) (0) k/uL Nucleated RBCs (0-0) /100 WBC Manual Slide Review Toxic Vacuolation Large Platelets Polychromasia PT (10.0-12.5) sec INR (<1.2) APTT (22.0-30.0) sec Sodium 132 L (137-145) mmol/L Potassium 4.9 (3.5-5.1) mmol/L Chloride 96 L (98-107) mmol/L Carbon Dioxide 30 (22-30) mmol/L Anion Gap 6 mmol/L BUN 25 H (9-20) mg/dL Creatinine 0.71 (0.66-1.25) mg/dL Est GFR (CKD-EPI)AfAm >90 (>60 ml/min/1.73 sqM) Est GFR (CKD-EPI)NonAf >90 (>60 ml/min/1.73 sqM) Glucose 139 H (74-99) mg/dL Plasma Lactic Acid Biju 1.3 (0.7-2.0) mmol/L Calcium 9.1 (8.4-10.2) mg/dL Total Bilirubin 0.8 (0.2-1.3) mg/dL AST 28 (17-59) U/L ALT 15 (4-49) U/L Alkaline Phosphatase 240 H (38-126) U/L Troponin I <0.012 (0.000-0.034) ng/mL Total Protein 5.9 L (6.3-8.2) g/dL Albumin 3.0 L (3.5-5.0) g/dL Urine Color Urine Appearance (Clear) Urine pH (5.0-8.0) Ur Specific [place] (1.001-1.035) Urine Protein (Negative) Urine Glucose (UA) (Negative) Urine Ketones (Negative) Urine Blood (Negative) Urine Nitrite (Negative) Urine Bilirubin (Negative) Urine Urobilinogen (<2.0) mg/dL Ur Leukocyte Esterase (Negative) Influenza Type A (PCR) (Not Detectd) Influenza Type B (PCR) (Not Detectd) RSV (PCR) (Not Detectd) SARS-CoV-2 (PCR) (Not Detectd) 07/16/24 Range/Units 17:30 WBC (4.50-10.00) 10*3/uL RBC (4.40-5.60) 10*6/uL Hgb (13.0-17.0) g/dL Hct (39.6-50.0) % MCV (80.0-97.0) fL MCH (27.0-32.0) pg MCHC (32.0-37.0) g/dL Plt Count (140-440) 10*3/uL MPV (9.5-12.2) fL Immature Gran % (Auto) % Neutrophils % (Manual) % Band Neuts % (Manual) % Lymphocytes % (Manual) % Monocytes % (Manual) % Metamyelocytes % % Myelocytes % % Immature Gran # (0.00-0.04) 10*3/uL Neutrophils # (Manual) (1.3-7.7) k/uL Lymphocytes # (Manual) (1.0-4.8) k/uL Monocytes # (Manual) (0-1.0) k/uL Metamyelocytes # (Man) (0) k/uL Myelocytes # (Manual) (0) k/uL Nucleated RBCs (0-0) /100 WBC Manual Slide Review Toxic Vacuolation Large Platelets Polychromasia PT (10.0-12.5) sec INR (<1.2) APTT (22.0-30.0) sec Sodium (137-145) mmol/L Potassium (3.5-5.1) mmol/L Chloride (98-107) mmol/L Carbon Dioxide (22-30) mmol/L Anion Gap mmol/L BUN (9-20) mg/dL Creatinine (0.66-1.25) mg/dL Est GFR (CKD-EPI)AfAm (>60 ml/min/1.73 sqM) Est GFR (CKD-EPI)NonAf (>60 ml/min/1.73 sqM) Glucose (74-99) mg/dL Plasma Lactic Acid Biju (0.7-2.0) mmol/L Calcium (8.4-10.2) mg/dL Total Bilirubin (0.2-1.3) mg/dL AST (17-59) U/L ALT (4-49) U/L Alkaline Phosphatase (38-126) U/L Troponin I (0.000-0.034) ng/mL Total Protein (6.3-8.2) g/dL Albumin (3.5-5.0) g/dL Urine Color Light Yellow Urine Appearance Clear (Clear) Urine pH 6.0 (5.0-8.0) Ur Specific [place] 1.036 H (1.001-1.035) Urine Protein Negative (Negative) Urine Glucose (UA) 4+ H (Negative) Urine Ketones 1+ H (Negative) Urine Blood Negative (Negative) Urine Nitrite Negative (Negative) Urine Bilirubin Negative (Negative) Urine Urobilinogen <2.0 (<2.0) mg/dL Ur Leukocyte Esterase Negative (Negative) Influenza Type A (PCR) (Not Detectd) Influenza Type B (PCR) (Not Detectd) RSV (PCR) (Not Detectd) SARS-CoV-2 (PCR) (Not Detectd) Disposition Clinical Impression: Lung mass, Sepsis Disposition: ADMITTED IP TO THIS HOSP Condition: Fair
[2024-07-16] MEDS: VANCOMYCIN 1,500 MG in SODIUM CHLORIDE 0.9% 500 ML 500 ML IVPB STA (15:48)
[2024-07-16] MEDS: PIPERACILLIN-TAZOBACTAM 3.375 GM in SODIUM CHLORIDE 0.9% 100 ML IVPB STA (15:51)
[2024-07-16 15:52] LABS: HCT 33.4 % (39.6-50.0); HGB 11.1 g/dL (13.0-17.0); MCH 32.1 pg (27.0-32.0); MCHC 33.2 g/dL (32.0-37.0); MCV 96.5 fL (80.0-97.0); Mean Platelet Volume 10.1 fL (9.5-12.2); Platelet Count 374 10*3/uL (140-440); RBC 3.46 10*6/uL (4.40-5.60); RDW 15.9 % (11.5-14.5)
[2024-07-16 16:01] LABS: Partial Thromboplastin Time 23.4 sec (22.0-30.0); Prothrombin Time 10.8 sec (10.0-12.5)
[2024-07-16 16:23] LABS: ALT 15 U/L (4-49); AST 28 U/L (17-59); African American GFR (CKD) >90 (>60 ml/min/1.73 sqM); Alkaline Phosphatase 240 U/L (38-126); Anion Gap 6 mmol/L; Blood Urea Nitrogen 25 mg/dL (9-20); Calcium 9.1 mg/dL (8.4-10.2); Carbon Dioxide 30 mmol/L (22-30); Chloride 96 mmol/L (98-107); Glucose 139 mg/dL (74-99); Non-African American GFR(CKD) >90 (>60 ml/min/1.73 sqM); Potassium 4.9 mmol/L (3.5-5.1); Sodium 132 mmol/L (137-145); Total Bilirubin 0.8 mg/dL (0.2-1.3); Total Protein 5.9 g/dL (6.3-8.2)
[2024-07-16 16:25] LABS: WBC 55.76 10*3/uL (4.50-10.00)
[2024-07-16 16:35] LABS: Influenza A Not Detected (Not Detectd); Influenza B Not Detected (Not Detectd); RSV Not Detected (Not Detectd)
[2024-07-16 16:40] LABS: Band Neutrophils % 1 %; Lymphocytes # (M) 2.23 k/uL (1.0-4.8); Metamyelocytes # (M) 0.56 k/uL (0); Metamyelocytes % 1 %; Monocytes # (M) 2.23 k/uL (0-1.0); Myelocytes # (M) 0.56 k/uL (0); Myelocytes % 1 %; Neutrophils # (M) 50.74 k/uL (1.3-7.7); Neutrophils % (M) 90 %; Nucleated Red Blood Cells 0 /100 WBC (0-0); Polychromasia Present; Total Cells Counted 200
[2024-07-16 16:41] LABS: Large Platelets Present; Toxic Vacuolation Present
--- NOTE | 2024-07-16 17:18 | CT ---
EXAMINATION TYPE: CT chest angio for PE CT DLP: 341.7 mGycm, Automated exposure control for dose reduction was used. DATE OF EXAM: 07/16/2024 5:00 PM COMPARISON: CT chest 07/08/2024, chest radiograph 07/07/2024 CLINICAL INDICATION:Male, 68 years old with history of Shortness of breath; shortness of breath TECHNIQUE/CONTRAST: CTA scan of the thorax is performed with IV Contrast, patient injected with 100 mL of Isovue 370, pul monary embolism protocol. MIP images are created and reviewed. FINDINGS: Pulmonary Artery: There is no evidence for a filling defect within the pulmonary vasculature to sugge st acute pulmonary embolism. The pulmonary artery is of normal size. The right upper lobe pulmonary arteries are encased by the mass like consolidation Lungs/Pleura: Mild centrilobular emphysematous changes. No pleural effusion or pneumothorax. Similar large masslike consolidation soft tissue, gas and fluid within the right upper lobe with extension in to the hilum. There are several scattered pulmonary nodules which have slightly increased in size fro m prior exam with example including a right middle lobe nodule now measuring up to 7 mm, previously 4 mm. A pleural-based right lower lobe medial 1.5 cm pulmonary nodule, previously measured 1.2 cm. Sim ilar left lower lobe pleural-based 3.7 cm pulmonary nodular density, previously measured 3.5 cm. Enla rged right lower lobe 1.2 cm pulmonary nodule, previously measured 0.6 cm. New medial right upper lob e 6 mm pulmonary nodule additional smaller new pulmonary nodules. AIRWAY: Patent and unremarkable.. HEART: Size within normal limits.Moderate aortic valvular calcifications. No pericardial effusion. Mi ld to moderate coronary artery calcifications present. MEDIASTINUM: Enlarged low-density right hilar lymph node measuring up to 1.7 cm. Again VASCULATURE: No aortic aneurysm. Atherosclerotic calcification of the aorta and its branches. MUSCULOSKELETAL: Mild disc degeneration changes are present throughout the thoracolumbar spine. No ag gressive osseous lesion. No acute osseous abnormality. At least moderate disc degenerative changes of the visualized cervical spine. SOFT TISSUES/LYMPH NODES: Bilateral gynecomastia. LOWER NECK: No significant findings. UPPER ABDOMEN: Similar 2.5 cm hypodense lesion within the right hepatic lobe centrally near the IVC ( series 401, image 153). Similar asymmetric thickening of the right adrenal gland compared to the left . IMPRESSION: 1. No evidence of pulmonary embolism. 2. Redemonstration of large right upper lobe pulmonary masslike consolidation with regions of fluid a nd gas with soft tissue. Etiologies include necrotic primary lung neoplasm with superimposed infectio us process versus irregular pulmonary abscess again. There is surrounding consolidative and groundgla ss airspace opacities within the right upper lobe and adjacent nodularity. There is increased size wi th few new scattered pulmonary nodules throughout the lungs concerning for metastasis. Recommend furt her evaluation with PET/CT and/or tissue sampling. 3. Right hepatic lobe central hypodense lesion redemonstrated. Additional asymmetric thickening of th e right adrenal gland and right hilar hypodense enlarged lymph node. These are concerning for metasta sis. Recommend further evaluation with PET/CT. [facility], , 07/16/2024 5:16 PM
[2024-07-16] MEDS: NICOTINE 21MG/24HR PATCH TRANSDERM STA (17:49)
[2024-07-16 18:02] LABS: Appearance,Urine Clear (Clear); Bilirubin,Urine Negative (Negative); Blood,Urine Negative (Negative); Color,Urine Light Yellow; Glucose,Urine (UA) 4+ (Negative); Ketones,Urine 1+ (Negative); Leukocyte Esterase,Urine Negative (Negative); Nitrite,Urine Negative (Negative); Protein,Urine Negative (Negative); Specific Gravity,Urine 1.036 (1.001-1.035); Urobilinogen,Urine <2.0 mg/dL (<2.0)
[2024-07-16] MEDS ORDERED: ACETAMINOPHEN TAB 325 MG TAB PO PRN (18:12)
[2024-07-16] MEDS ORDERED: HYDROcodone/APAP 5-325MG 1 EACH TAB PO PRN (18:12)
[2024-07-16] MEDS ORDERED: CALCIUM CARBONATE 500 MG CHEWABLE PO PRN (18:12)
[2024-07-16] MEDS ORDERED: MAG HYDROX/AL HYDROX/SIMETH 30 ML CUP PO PRN (18:12)
[2024-07-16] MEDS ORDERED: NALOXONE 0.4 MG/ML 1 ML VIAL IV PRN (18:12)
[2024-07-16] MEDS: GLIMEPIRIDE 1 MG TAB PO SCH (21:02)
[2024-07-16] MEDS: ATORVASTATIN 80 MG TAB PO SCH (21:03)
[2024-07-16] MEDS: FAMOTIDINE 20 MG TAB PO SCH (21:03)
[2024-07-16] MEDS: LACTATED RINGERS 1,000 ML IV ONE (21:04)
[2024-07-16] MEDS: SODIUM CHLORIDE 0.9% 1,000 ML IV SCH (21:05)
[2024-07-16] MEDS: HYDROmorphone 1 MG/ML 1 ML SYRINGE IVP PRN (22:10)
[2024-07-17 08:02] LABS: HCT 33.6 % (39.6-50.0); MCH 32.7 pg (27.0-32.0); MCHC 32.7 g/dL (32.0-37.0); Mean Platelet Volume 10.6 fL (9.5-12.2); Platelet Count 379 10*3/uL (140-440); RBC 3.36 10*6/uL (4.40-5.60); RDW 15.9 % (11.5-14.5); WBC 43.91 10*3/uL (4.50-10.00)
[2024-07-17] MEDS: ASPIRIN 81 MG PO SCH (08:09)
[2024-07-17] MEDS: DAPAGLIFLOZIN PROPANEDIOL 10 MG TABLET PO SCH (08:09)
[2024-07-17] MEDS: VANCOMYCIN 1,500 MG in SODIUM CHLORIDE 0.9% 500 ML 500 ML IVPB SCH (08:09)
[2024-07-17] MEDS: PIPERACILLIN-TAZOBACTAM 3.375 GM in SODIUM CHLORIDE 0.9% 100 ML IVPB SCH (08:10)
[2024-07-17 08:11] LABS: African American GFR (CKD) >90 (>60 ml/min/1.73 sqM); Non-African American GFR(CKD) >90 (>60 ml/min/1.73 sqM)
[2024-07-17 08:32] LABS: Anion Gap 4 mmol/L; Blood Urea Nitrogen 15 mg/dL (9-20); Calcium 8.7 mg/dL (8.4-10.2); Carbon Dioxide 32 mmol/L (22-30); Chloride 99 mmol/L (98-107); Glucose 123 mg/dL (74-99); Potassium 4.1 mmol/L (3.5-5.1); Sodium 135 mmol/L (137-145)
[2024-07-17] MEDS: ALBUTEROL NEBULIZED 2.5 MG/3 ML INHALATION PRN (09:08)
[2024-07-17 09:45] LABS: Anisocytosis (M) Present; Lymphocytes # (M) 1.32 k/uL (1.0-4.8); Monocytes # (M) 2.63 k/uL (0-1.0); Neutrophils # (M) 39.96 k/uL (1.3-7.7); Neutrophils % (M) 91 %; Nucleated Red Blood Cells 0 /100 WBC (0-0); Total Cells Counted 100
[2024-07-17 11:57] LABS: Basophils # (A) 0.15 10*3/uL (0.00-0.10); Basophils % (A) 0.4 %; Eosinophils # (A) 0.13 10*3/uL (0.04-0.35); Eosinophils % (A) 0.3 %; HGB 10.7 g/dL (13.0-17.0); Lymphocytes # (A) 1.59 10*3/uL (0.90-5.00); Lymphocytes % (A) 3.8 %; MCH 32.3 pg (27.0-32.0); MCHC 32.4 g/dL (32.0-37.0); MCV 99.7 fL (80.0-97.0); Monocytes # (A) 1.67 10*3/uL (0.20-1.00); Neutrophils # (A) 36.54 10*3/uL (1.80-7.70); Neutrophils % (A) 87.8 %; Platelet Count 350 10*3/uL (140-440); RBC 3.31 10*6/uL (4.40-5.60); RDW 15.9 % (11.5-14.5)
[2024-07-17 11:58] LABS: ALT 14 U/L (4-49); AST 19 U/L (17-59); African American GFR (CKD) >90 (>60 ml/min/1.73 sqM); Albumin 2.8 g/dL (3.5-5.0); Alkaline Phosphatase 184 U/L (38-126); Anion Gap 7 mmol/L; Blood Urea Nitrogen 12 mg/dL (9-20); Calcium 8.7 mg/dL (8.4-10.2); Carbon Dioxide 29 mmol/L (22-30); Chloride 99 mmol/L (98-107); Glucose 108 mg/dL (74-99); Non-African American GFR(CKD) >90 (>60 ml/min/1.73 sqM); Potassium 4.1 mmol/L (3.5-5.1); Sodium 135 mmol/L (137-145); Total Bilirubin 0.7 mg/dL (0.2-1.3); Total Protein 5.4 g/dL (6.3-8.2)
[2024-07-17] MEDS: IV FLUID CONTINUATION 900 ML IV ONE (12:07)
[2024-07-17] MEDS: DEXAMETHASONE SOD PHOSPHATE 4 MG/ML 1 ML VIAL IVP STA (12:09)
[2024-07-17] MEDS: ONDANSETRON 4 MG/2 ML VIAL IVP PRN (12:09)
[2024-07-17] MEDS ORDERED: PHENYLEPHRINE-0.9% NACL SYG 1,000 MCG/10 ML SYRINGE ONE (12:25)
[2024-07-17] MEDS ORDERED: NEOSTIGMINE 1 MG/ML 10 ML VIAL ONE (12:25)
[2024-07-17] MEDS ORDERED: GLYCOPYRROLATE 0.2 MG/ML 2 ML VIAL ONE (12:25)
[2024-07-17] MEDS ORDERED: PROPOFOL 10 MG/ML 20 ML VIAL IV ONE (12:25)
[2024-07-17] MEDS ORDERED: LIDOCAINE HCL/PF 20 MG/ML 10 ML AMP ONE (12:25)
[2024-07-17] MEDS ORDERED: ROCURONIUM 10 MG/ML (5 ML VIAL) IV ONE (12:25)
[2024-07-17] MEDS ORDERED: SUCCINYLCHOLINE CHLORIDE 200 MG/10 ML VIAL IV ONE (12:25)
[2024-07-17 12:43] LABS: Anisocytosis (M) Present
[2024-07-17] MEDS: IV FLUID CONTINUATION 1,000 ML IV ONE ×2 (13:38→14:13)
--- NOTE | 2024-07-17 14:47 | FL ---
EXAMINATION TYPE: FL bronchoscopy DATE OF EXAM: 07/17/2024 FLUOROSCOPY RT UPPER LOBE BIOPSY. [address] Nelson. 1 image is submitted. [facility], , 07/17/2024 2:45 PM
[2024-07-17] MEDS: PIOGLITAZONE 45 MG TAB PO SCH (15:12)
[2024-07-17] MEDS ORDERED: LORazepam 0.5 MG TAB PO PRN (16:22)
--- NOTE | 2024-07-17 16:35 | P.CNPUL ---
History of Present Illness Consult date: 07/17/24 Reason for consult: lung mass History of present illness: This is a 68-year-old male patient with a large right upper lobe mass who initially presented to my office on 07/10/2024 for ongoing respiratory complaints of cough and episodes of hemoptysis has been going on for the past several months. The patient was coughing on some bright light blood and small amounts. He was also getting progressively more short of breath. Chest x-ray was done on outpatient basis and the patient was found to have a masslike consolidation in the right upper lobe along with regions of gas and fluid. The findings are highly suspicious for malignancy. Abscess was considered to be less likely. There was also some areas of consolidation and groundglass airspace around the right upper lobe which was concerning for infection versus lymphangitic spread. The patient also had another 2.3 cm hypodense lesion in the right hepatic lobe consistent with cysts. There was also asymmetry in the adrenal glands. He was having constitutional symptoms with around 12 pounds weight loss over the past several months he is a chronic smoker smokes around 1 pack of cigarettes a day. He retired last year. 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 No history of any recurrent pneumonias. No fever. No chills. He is known to have coronary artery disease and has undergone previous coronary stenting of the LAD back in 2020, maintained on a combination of aspirin and Plavix. He also has bicuspid aortic valve with mild aortic stenosis and moderate aortic regurgitation based on the JENNIFER that was done few years back. The patient was supposed to have an outpatient bronchoscopy and preoperatively, the patient was noted to be hypotensive. His systolic blood pressure was in the low 80s and high 70s. He was also having sinus tachycardia. Based on that, the procedure was canceled and the patient was admitted to the hospital via emergency department. Blood work shows a white cell count of 55.7 with a hemoglobin of 11.1 and a platelet count of 374. The patient had 90% neutrophilia. Normal coagulation profile. Normal renal function. Normal LFTs. Troponin was less than 0.01. Procalcitonin level was less than 0.2. UA was negative. Viral screen was negative. The patient was given IV fluids and his blood pressure responded nicely. He was started on a combination of Zosyn and vancomycin. This morning, the patient seems to be quite comfortable on 2 L of oxygen by nasal cannula. The white cell count was essentially on the decline and based on that it was decided to proceed with a bronchoscopy. A CTA of the chest was done yesterday in the emergency department that showed no evidence of any pulm embolism. There was redemonstration of a large right upper lobe masslike consolidation with regions of gas and fluid and soft tissue. This could be potentially necrotic neoplasm although an irregular pulmonary abscess cannot be completely ruled out. There is also increase in size of few new s cattered pulmonary nodules throughout the lung concerning for metastases. Review of Systems Constitutional: Reports fatigue, Reports weakness, Reports weight loss Eyes: denies as per HPI, denies blurred vision, denies bulging eye, denies decreased vision, denies diplopia, denies discharge, denies dry eye, denies irritation, denies itching, denies pain, denies photophobia, denies loss of peripheral vision, denies loss of vision, denies tunnel vision/blind spots Ears: deny: decreased hearing, ear discharge, earache, tinnitus Ears, nose, mouth and throat: Reports as per HPI Breasts: absent: as per HPI, gynecomastia Cardiovascular: Reports decreased exercise tolerance, Reports dyspnea on exertion Respiratory: Reports cough, Reports dyspnea, Reports hemoptysis Gastrointestinal: Reports as per HPI Genitourinary: Reports as per HPI Musculoskeletal: Reports as per HPI Musculoskeletal: absent: ankle pain, ankle stiffness, ankle swelling, as per HPI, elbow pain, elbow stiffness, elbow swelling, foot pain, foot stiffness, foot swelling, hand pain, hand stiffness, hand swelling, hip pain, hip stiffness, hip swelling, knee pain, knee stiffness, knee swelling, shoulder pain, shoulder stiffness, shoulder swelling, wrist pain, wrist stiffness, wrist swelling Integumentary: Reports as per HPI Neurological: Reports as per HPI Psychiatric: Reports as per HPI Endocrine: Reports as per HPI Hematologic/Lymphatic: Reports as per HPI Allergic/Immunologic: Reports as per HPI Past Medical History Past Medical History: Coronary Artery Disease (CAD), Diabetes Mellitus, Hyperlipidemia, Hypertension Additional Past Medical History / Comment(s): bleeding with stools several yrs. ago, Type II DM, difficulty breathing since 2024 after a "bad cold". right lung mass July 13 History of Any Multi-Drug Resistant Organisms: None Reported Past Surgical History: Heart Catheterization With Stent, Hernia Repair Additional Past Surgical History / Comment(s): BILATERAL CATARACT SURGERY, COLONOSCOPY, JENNIFER 10/24, cardiac stent 2021 Past Anesthesia/Blood Transfusion Reactions: No Reported Reaction Additional Past Anesthesia/Blood Transfusion Reaction / Comment(s): no hx blood transfusion Date of Last Stent Placement:: 2021 Past Psychological History: No Psychological Hx Reported Smoking Status: Current every day smoker Past Alcohol Use History: None Reported, Occasional Additional Past Alcohol Use History / Comment(s): started smoking at age 14, SMOKES 1ppd 2 DRINKS A DAY Past Drug Use History: None Reported, Marijuana Additional Drug Use History / Comment(s): uses marijuana occasionally - Past Family History Mother Family Medical History: Hyperlipidemia, Hypertension Brother(s) Family Medical History: Coronary Artery Disease (CAD) Additional Family Medical History / Comment(s): cardiac stent Medications and Allergies Home Medications Medication Instructions Recorded Confirmed Type Glimepiride [Amaryl] 1 mg PO HS 04/30/18 07/16/24 History Pioglitazone [Actos] 45 mg PO DAILY 04/30/18 07/16/24 History lisinopriL [Zestril] 5 mg PO DAILY 04/30/18 07/16/24 History Aspirin 81 mg PO DAILY 10/19/20 07/16/24 History Empagliflozin [Jardiance] 25 mg PO DAILY 10/19/20 07/16/24 History Atorvastatin [Lipitor] 80 mg PO HS 07/14/24 07/16/24 History Albuterol Sulfate [Albuterol 2 puff INHALATION RT-Q4H PRN 07/16/24 07/16/24 History Sulfate Hfa] Allergies Allergy/AdvReac Type Severity Reaction Status Date / Time No Known Allergies Allergy Verified 07/16/24 17:37 Physical Exam Vitals: Vital Signs Temp Pulse Pulse Resp BP BP Pulse Ox 07/17/24 14:07 98 16 110/54 94 L 07/17/24 13:53 95 16 98/54 96 07/17/24 13:38 97.5 F L 98 16 135/63 98 07/17/24 11:57 97.9 F 96 16 111/54 96 07/17/24 09:17 87 07/17/24 09:11 98 07/17/24 09:09 96 07/17/24 08:25 98.5 F 103 H 18 99/63 95 07/17/24 03:56 98.4 F 102 H 18 105/50 98 07/17/24 03:39 98 16 100/50 95 07/17/24 02:29 98.6 F 98 16 98/53 96 07/17/24 01:04 112 H 16 95/48 95 07/16/24 23:17 102 H 17 104/51 96 07/16/24 21:35 112 H 20 106/55 97 07/16/24 19:50 97.7 F 111 H 20 71/48 96 07/16/24 17:32 110 H 20 105/46 07/16/24 17:00 108 H 18 113/53 95 Intake and Output 07/17/24 07/17/24 07/17/24 06:59 14:59 22:59 Intake Total 950 Output Total 400 400 Balance -400 550 Intake: IV 950 Output: Urine 400 400 Other: Voiding Method Toilet Urinal Weight 82 kg The patient appeared well nourished and normally developed. Vital signs as documented. Comfortable on 2 days of oxygen by nasal cannula Head exam is unremarkable. No scleral icterus or corneal arcus noted. Neck is without jugular venous distension, thyromegaly, or carotid bruits. Carotid upstrokes are brisk bilaterally. Lungs are clear to auscultation and percussion. Diminished breath sounds in the lungs right more than left. Cardiac exam reveals the PMI to be normally sized and situated. Rhythm is regular. First and second heart sounds normal. No murmurs, rubs or gallops. Abdominal exam reveals normal bowel sounds, no masses, no organomegaly and no aortic enlargement. Extremities are nonedematous and both femoral and pedal pulses are normal. Examination of the skin revealed no evidence of significant rashes, suspicious appearing nevi or other concerning lesions. Neurologically, the patient is awake and alert and the patient does not have any focal neurological deficit. Cranial nerves are essentially intact. Results - Laboratory Findings CBC and BMP: 07/17/24 11:32 07/17/24 11:32 PT/INR, D-dimer PT 10.8 sec (10.0-12.5) 07/16/24 15:40 INR 1.0 (<1.2) 07/16/24 15:40 Abnormal lab findings: Abnormal Labs 07/16/24 07/16/24 07/16/24 15:40 15:40 17:30 WBC 55.76 H* RBC 3.46 L Hgb 11.1 L Hct 33.4 L MCV MCH 32.1 H Immature Gran # 1.92 H Neutrophils # Neutrophils # (Manual) 50.74 H Monocytes # Monocytes # (Manual) 2.23 H Basophils # Metamyelocytes # (Man) 0.56 H Myelocytes # (Manual) 0.56 H Sodium 132 L Chloride 96 L Carbon Dioxide BUN 25 H Creatinine Glucose 139 H Alkaline Phosphatase 240 H Total Protein 5.9 L Albumin 3.0 L Ur Specific [place] 1.036 H Urine Glucose (UA) 4+ H Urine Ketones 1+ H 07/17/24 07/17/24 07/17/24 06:27 06:27 11:32 WBC 43.91 H 41.60 H RBC 3.36 L 3.31 L Hgb 11.0 L 10.7 L Hct 33.6 L 33.0 L MCV 100.0 H 99.7 H MCH 32.7 H 32.3 H Immature Gran # 1.72 H 1.52 H Neutrophils # 36.54 H Neutrophils # (Manual) 39.96 H Monocytes # 1.67 H Monocytes # (Manual) 2.63 H Basophils # 0.15 H Metamyelocytes # (Man) Myelocytes # (Manual) Sodium 135 L Chloride Carbon Dioxide 32 H BUN Creatinine 0.61 L Glucose 123 H Alkaline Phosphatase Total Protein Albumin Ur Specific [place] Urine Glucose (UA) Urine Ketones 07/17/24 11:32 WBC RBC Hgb Hct MCV MCH Immature Gran # Neutrophils # Neutrophils # (Manual) Monocytes # Monocytes # (Manual) Basophils # Metamyelocytes # (Man) Myelocytes # (Manual) Sodium 135 L Chloride Carbon Dioxide BUN Creatinine 0.49 L Glucose 108 H Alkaline Phosphatase 184 H Total Protein 5.4 L Albumin 2.8 L Ur Specific [place] Urine Glucose (UA) Urine Ketones - Diagnostic Findings Chest x-ray: image reviewed CT scan - chest: image reviewed Assessment and Plan Plan: Right upper lobe mass. Initial CAT scan of the chest showed a 12.4 x 9 cm mass occupying the majority of the right upper lobe extending into the right hilum. Within the mass, there is areas of fluid and gas and there is also some surrounding area of consolidation. Obviously, the findings are highly suspicious for necrotic neoplasm involving the right upper lobe although the possibility of a superinfection or a lung abscess cannot be completely ruled out. The patient was hospitalized for hypotension and tachycardia and the bronchoscopy that was scheduled on 07/16/2024 was canceled due to hypotension and tachycardia. Overnight, the patient was started IV fluids and his history much more comfortable. Repeat CAT scan of the chest was done redemonstrating the same findings in the right upper lobe with few scattered nodular densities consistent with metastatic disease. As mentioned, findings are highly suspicious for malignancy especially the patient has been having episodes of hemoptysis recalcitrant symptoms of weight loss and worsening shortness of breath. He is a chronic smoker, carries [id number] smoking history Hemoptysis secondary to above Hypotension/tachycardia. Rule out underlying infection/sepsis, responded to IV fluids. The patient is currently on a combination of Zosyn and vancomycin. Acute leukocytosis, improving. Procalcitonin level is not elevated. This could be potentially also reactive/leukemoid reaction to malignancy Coronary artery disease with previous coronary stenting of the LAD back in 2020 History of bicuspid aortic valve with mild aortic stenosis and moderate aortic r egurgitation Hyperlipidemia Diabetes mellitus type 2 COPD, FEV1 of 41% of predicted, 1.37 L. Plan Titrate oxygen flow to maintain saturation above 90%, currently on 2 L Hemodynamically stable Continue IV fluids Continue IV Zosyn and vancomycin Bronchoscopy and right upper lobe biopsy of the bronchioloalveolar lavage is to be done today Will make further recommendations based on the findings. Plavix is on hold Continue the rest of the home medications Patient is currently n.p.o. and preparation for bronchoscopy today Will follow Time with Patient: Greater than 30
--- NOTE | 2024-07-17 16:40 | P.PCN ---
Date of Procedure: 07/17/24 Operative Findings: Preoperative Diagnosis: Right upper lobe mass Postoperative Diagnosis: Right upper lobe mass Procedure(s) Performed: Flexible bronchoscopy Robotic-assisted bronchoscopy and addition to radial ultrasound evaluation of the right upper lobe mass Robotic-assisted transbronchial transbronchial needle aspirate, transbronchial biopsies bronchioloalveolar lavage of the right upper lobe mass Endobronchial ultrasound Anesthesia: MANJEET Surgeon: Juan Jose Nelson Estimated Blood Loss (ml): 0 Pathology: other Condition: stable Disposition: same day Operative Findings: A physical exam was performed. Informed consent was obtained from the patient after explaining all the risks (pneumothorax, life threatening bleeding, infection and adverse effects due to medications), benefits and alternatives to the procedure which the patient appeared to understand and so stated. The patient was connected to the monitoring devices. General anesthesia was induced and the patient was intubated by anesthesia. A final timeout was performed and the procedure confirmed by the attending staff bronchoscopist. The bronchoscope was inserted and the airway examined. Airway examination shows that the distal trachea, Right upper lobe and middle lobe and lower lobe bronchi was all within normal limits. Patient left mainstem bronchus is within normal limits. Examination of left lower lobe was within normal limits. The left upper lobe bronchus and the lingular segment was also patent within normal limits. There was retained secretions in the patient's airway and those secretions were essentially bloody, originating from the right upper lobe. No active bleeding identified. The flexible bronchoscope was removed and the robotic bronchoscope was inserted. Registration was completed. I next guided the robotic bronchoscope using the navigation system into the right right upper lobe mass. Once in proper position, the bronchoscope was frozen. The radial EBUS probe was placed through the bronchoscope and confirmed abnormal u/s images vs normal lung. A needle was placed through the working channel and another fluoroscopic guidance, we sampled the area in the right lower lobe where the opacity was present. We then used a cloud biopsy pattern with ultrasound confirmation for 2 additional passes with the needle. Following that, a forceps were next introduced through working channel and extended the appropriate dista nce and 3 transbronchial biopsies were performed using fluoroscopic guidance. The u/s probe was then reinserted to confirm location. When confirmed this process was repeated for a total of 8-10 transbronchial biopsies. Following that, a total of 80 cc of saline was infused into the right upper lobe and approximately 20 cc of saline was aspirated and the bronchial lavage was sent for cytologic evaluation and cultures. Flex. bronchoscope was inserted and regular suctioning was done. At the completion of the procedure, no residual secretions or bloody material within the airway. The bronchoscope was removed. The patient was extubated. FINDINGS: 1.The airways appeared normal, there was evidence of bloody secretions originating from the right upper lobe and also retained throughout the airway specially on the right side 2 Successful navigation, ultrasonographic identification, and biopsies of right right upper lobe mass. 3.The the radial ultrasound view was concentric
--- NOTE | 2024-07-17 17:37 | XR ---
EXAMINATION TYPE: XR chest 1V portable DATE OF EXAM: 07/17/2024 5:31 PM COMPARISON: Chest radiograph 07/17/2024. CLINICAL INDICATION: Male, 68 years old with history of chf; [facility] TECHNIQUE: XR chest 1V portable Frontal view of the chest. FINDINGS: Cardiac silhouette is stable from prior study. Masslike consolidative changes in the right mid/upper lung measuring approximately 11.1 x 9.6 cm, not significantly changed from recent study 07/07/2024. No pneumothorax. No acute pathology identified in the left lung. No sizable left pleural effusion. IMPRESSION: No significant interval changes from recent study 07/07/2024. [facility], , 07/17/2024 5:34 PM
[2024-07-17] MEDS: IOPAMIDOL CONTRAST (ORAL USE) VIAL PO PRN (20:34)
[2024-07-17] MEDS: HEPARIN SODIUM,PORCINE 5,000 UNIT/ML 1 ML VIAL SQ SCH (20:35)
[2024-07-17] MEDS: ALPRAZolam 0.25 MG TAB PO PRN (23:03)
--- NOTE | 2024-07-17 23:56 | CT ---
EXAM: CT Head Without Intravenous Contrast CLINICAL HISTORY: ITS.REASON CT Reason: stroke TECHNIQUE: Axial computed tomography images of the head/brain without intravenous contrast. CTDI is 49.1 mGy and DLP is 1245.4 mGy-cm. This CT exam was performed using one or more of the following dose reduction techniques: automated exposure control, adjustment of the mA and/or kV according to patient size, and/or use of iterative reconstruction technique. COMPARISON: No relevant prior studies available. FINDINGS: Brain: Age-related parenchymal volume loss. Mild chronic small vessel ischemic change. Tyler-white matter differentiation maintained. No hemorrhage, mass effect, parenchymal edema, or midline shift. Ventricles: No hydrocephalus. Bones/joints: No acute fracture. Soft tissues: Unremarkable. Vasculature: Intracranial atherosclerosis. Sinuses: Retention cyst left maxillary sinus. Mastoid air cells: No significant mastoid effusion. Orbits: Lens replacements. IMPRESSION: No acute intracranial process.
--- NOTE | 2024-07-18 00:03 | CT ---
EXAM: CT Abdomen and Pelvis Without Intravenous Contrast CLINICAL HISTORY: ITS.REASON CT Reason: mets? TECHNIQUE: Axial computed tomography images of the abdomen and pelvis without intravenous contrast. CTDI is 13.9 mGy and DLP is 889.5 mGy-cm. This CT exam was performed using one or more of the following dose reduction techniques: automated exposure control, adjustment of the mA and/or kV according to patient size, and/or use of iterative reconstruction technique. COMPARISON: CT chest 07/16/24 FINDINGS: Lung bases: Reported separately. ABDOMEN: Liver: Hypodense medial right hepatic lobe lesion measuring 3 cm (axial 32). Gallbladder and bile ducts: Contracted gallbladder. No stones. No ductal dilation. Pancreas: Unremarkable. No ductal dilation. Spleen: Unremarkable. No splenomegaly. Adrenals: Right adrenal nodule measuring 3 cm. Kidneys and ureters: No hydronephrosis or radiopaque stones. Simple right kidney cyst; no follow-up indicated. Stomach and bowel: No bowel obstruction. Colonic diverticulosis. No diverticulitis. PELVIS: Appendix: Normal appendix. Bladder: Unremarkable. No stones. Reproductive: Unremarkable as visualized. ABDOMEN and PELVIS: Intraperitoneal space: Unremarkable. No free fluid or free air. Bones/joints: Lumbar spondylosis. No suspicious bone lesions. No acute fracture. No dislocation. Soft tissues: Small fat-containing umbilical hernia. Vasculature: Atherosclerosis. No abdominal aortic aneurysm. Lymph nodes: Unremarkable. No enlarged lymph nodes. Other findings: Oral contrast administered. IMPRESSION: 1. Hypodense medial right hepatic lobe lesion measuring 3 cm. Metastasis is possible. 2. Right adrenal nodule measuring 3 cm. Metastasis is possible.
--- NOTE | 2024-07-18 00:19 | HP ---
HISTORY AND PHYSICAL CHIEF COMPLAINT: Incessant cough and dizziness. HISTORY OF PRESENT ILLNESS: This 68-year-old gentleman with a past medical history of multiple medical history including hypertension, diabetes, hyperlipidemia, symptomatic for the last several weeks. The patient had a cough and upper respiratory symptoms. Because of lack of improvement, the patient was scheduled for bronchoscopy. The patient was symptomatic. The patient was evaluated in the ER with extremely high white count and a chest CTA was also done, which showed large right upper lobe pulmonary mass like consolidation with soft tissues, possibly necrotic indicating possibly lung abscess. Right hepatic lobe center lesions also noted and the patient is being admitted for further evaluation and treatment. There is no history of fever, rigors, or chills at this time. PAST MEDICAL HISTORY: History of diabetes, hypertension, hyperlipidemia. HOME MEDICATIONS: Zestril. Doses and rest of medications reviewed. ALLERGIES: None. FAMILY HISTORY: Hypertension, hyperlipidemia, and cardiac stent. SOCIAL HISTORY: History of THC. Remote history of smoking. REVIEW OF SYSTEMS: A 14-point review of systems is negative except as mentioned earlier. PHYSICAL EXAMINATION: VITAL SIGNS: Pulse is 95, blood pressure 98/54, and respirations 16. HEENT: Conjunctivae normal. NECK: No JVD. CARDIOVASCULAR: S1,S2. RESPIRATIONS: Bilateral scattered rhonchi and crackles. Expiratory wheezing. ABDOMEN: Soft and nontender. LEGS: No edema. NERVOUS SYSTEM: Nonfocal. LABORATORY DATA: Reviewed. ASSESSMENT: 1. Right-sided lung abscess, possibly with sepsis present on admission. 2. Status post bronchoscopy. 3. Microcytic anemia. 4. Hepatic lesion, rule out malignancy. 5. History of EtOH. 6. Diabetes mellitus, type 2. 7. Hypertension. 8. Hyperlipidemia. 9. History of nicotine dependence. 10.Multiple complex medical issues. RECOMMENDATIONS: This 68-year-old gentleman presented with multiple complex medical issues. We will monitor the patient closely. I would recommend broad-spectrum IV antibiotics. Infectious Disease, Pulmonary consultations. We will continue to monitor. I would also recommend CT of the abdomen and pelvis and CT brain also to complete the workup. Prognosis extremely guarded because of multiple complex medical issues. Further recommendations to follow. See orders for details. MMODL / IJN: [id number] /
[2024-07-18] MEDS: PANTOPRAZOLE 40 MG TABLET PO SCH (06:02)
[2024-07-18 06:15] LABS: Glucose,Whole Blood 148 mg/dL (70-110)
[2024-07-18 08:44] LABS: HCT 35.6 % (39.6-50.0); HGB 11.3 g/dL (13.0-17.0); MCH 31.9 pg (27.0-32.0); MCHC 31.7 g/dL (32.0-37.0); MCV 100.6 fL (80.0-97.0); Mean Platelet Volume 10.4 fL (9.5-12.2); Platelet Count 392 10*3/uL (140-440); RBC 3.54 10*6/uL (4.40-5.60); RDW 15.8 % (11.5-14.5)
[2024-07-18 09:04] LABS: WBC 54.65 10*3/uL (4.50-10.00)
[2024-07-18 09:11] LABS: African American GFR (CKD) >90 (>60 ml/min/1.73 sqM); Anion Gap 8 mmol/L; Blood Urea Nitrogen 11 mg/dL (9-20); Calcium 8.5 mg/dL (8.4-10.2); Carbon Dioxide 28 mmol/L (22-30); Chloride 99 mmol/L (98-107); Glucose 166 mg/dL (74-99); Non-African American GFR(CKD) >90 (>60 ml/min/1.73 sqM); Potassium 3.9 mmol/L (3.5-5.1); Sodium 135 mmol/L (137-145)
[2024-07-18 11:08] LABS: Lymphocytes # (M) 3.83 k/uL (1.0-4.8); Monocytes # (M) 1.09 k/uL (0-1.0); Neutrophils # (M) 49.73 k/uL (1.3-7.7); Neutrophils % (M) 91 %; Nucleated Red Blood Cells 0 /100 WBC (0-0); Total Cells Counted 100
[2024-07-18 11:09] LABS: Anisocytosis (M) Present
[2024-07-18 11:46] LABS: Glucose,Whole Blood 309 mg/dL (70-110)
[2024-07-18] MEDS ORDERED: POTASSIUM CHLORIDE ER 20 MEQ TAB.ER PO STA (13:02)
[2024-07-18] MEDS ORDERED: DEXTROSE 50% SYRINGE 50 ML IVP PRN ×2 (13:04)
--- NOTE | 2024-07-18 16:14 | P.CONS ---
History of Present Illness - Reason for Consult Consult date: 07/18/24 RUL lung mass - Chief Complaint Cough, hemoptysis - History of Present Illness Mr. Davis is a 68-year-old gentleman with a past medical history significant for CAD and cigarette smoking for whom we are consulted with regards to suspicious right upper lung mass. He notes having cough and hemoptysis that initially started towards the end of 2023 and became more persistent over the past month. He was referred to pulmonology, where CT of the chest on 07/08/2024 noted right upper lobe masslike consolidation with regions of fluid and gas in addition to scattered bilateral pulmonary nodules and right hilar lymphadenopathy. In addition, there was suspicion for a right hepatic lobe lesion and thickening of the right adrenal gland. He was arranged to have outpatient bronchoscopy, but was noted to have hypotension, with bronchoscopy being aborted and being admitted to [facility]. Labs on admission were notable for WBC 55.76 (ANC 50.14), hemoglobin 11.1, platelets 374. CTA of the chest on admission from 07/16/2024 revealed no evidence of pulmonary embolism, but did note known right upper lobe masslike consolidation in addition to pulmonary nodules that appeared enlarged compared to prior CT. CT of the brain without contrast on 07/17/2024 revealed no suspicious findings. CT abdomen/pelvis performed this morning on 07/18/2024 noted 3 cm right hepatic lobe lesion in addition to right adrenal gland thickening measuring 3 cm. Since admission, he notes improvement with his breathing. He continues to have intermittent episodes of zeny hemoptysis. He denies any fevers, chills, night sweats, lymphadenopathy. He did have weight loss of approximately 15 pounds since May 2024. He has smoked 1 pack of cigarettes daily for 55 years and was smoking prior to admission. 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 Review of Systems 14 point review of systems was conducted pertinent positives and negatives as noted per HPI Past Medical History Past Medical History: Coronary Artery Disease (CAD), Diabetes Mellitus, Hyperlipidemia, Hypertension Additional Past Medical History / Comment(s): bleeding with stools several yrs. ago, Type II DM, difficulty breathing since 2024 after a "bad cold". right lung mass July 13 History of Any Multi-Drug Resistant Organisms: None Reported Past Surgical History: Heart Catheterization With Stent, Hernia Repair Additional Past Surgical History / Comment(s): BILATERAL CATARACT SURGERY, COLONOSCOPY, JENNIFER 10/24, cardiac stent 2021 Past Anesthesia/Blood Transfusion Reactions: No Reported Reaction Additional Past Anesthesia/Blood Transfusion Reaction / Comm: no hx blood transfusion Date of Last Stent Placement:: 2021 Past Psychological History: No Psychological Hx Reported Smoking Status: Current every day smoker Past Alcohol Use History: None Reported, Occasional Additional Past Alcohol Use History / Comment(s): started smoking at age 14, SMOKES 1ppd 2 DRINKS A DAY Past Drug Use History: None Reported, Marijuana Additional Drug Use History / Comment(s): uses marijuana occasionally - Past Family History Mother Family Medical History: Hyperlipidemia, Hypertension Brother(s) Family Medical History: Coronary Artery Disease (CAD) Additional Family Medical History / Comment(s): cardiac stent Medications and Allergies Home Medications Medication Instructions Recorded Confirmed Type Glimepiride [Amaryl] 1 mg PO HS 04/30/18 07/16/24 History Pioglitazone [Actos] 45 mg PO DAILY 04/30/18 07/16/24 History lisinopriL [Zestril] 5 mg PO DAILY 04/30/18 07/16/24 History Aspirin 81 mg PO DAILY 10/19/20 07/16/24 History Empagliflozin [Jardiance] 25 mg PO DAILY 10/19/20 07/16/24 History Atorvastatin [Lipitor] 80 mg PO HS 07/14/24 07/16/24 History Albuterol Sulfate [Albuterol 2 puff INHALATION RT-Q4H PRN 07/16/24 07/16/24 History Sulfate Hfa] Allergies Allergy/AdvReac Type Severity Reaction Status Date / Time No Known Allergies Allergy Verified 07/16/24 17:37 Physical Exam Vitals: Vital Signs Temp Pulse Resp BP Pulse Ox 07/18/24 14:00 101 H 18 07/18/24 12:26 101 H 18 115/67 96 07/18/24 09:46 98.2 F 101 H 20 93/59 98 07/18/24 09:45 101 H 20 07/18/24 04:00 98.2 F 101 H 20 99/61 96 07/18/24 02:00 101 H 20 07/18/24 00:00 97.6 F 104 H 20 91/51 95 07/17/24 20:00 97.9 F 101 H 20 91/52 95 07/17/24 17:00 102 H 20 117/64 95 Intake and Output 07/18/24 07/18/24 07/18/24 06:59 14:59 22:59 Intake Total 1500 20 Output Total 1350 700 725 Balance 150 680 -725 Intake: IV 20 Invasive Line 1 20 Intake, IV Titration 1500 Amount Piperacillin-Tazobactam 3 100 .375 gm In Sodium Chloride 0.9% 100 ml @ 25 mls/hr IVPB Q8HR [facility] Rx# :[id number] Sodium Chloride 0.9% 1, 900 000 ml @ 75 mls/hr IV . [id number] [facility] Rx#:[id number] Vancomycin 1,500 mg In 500 Sodium Chloride 0.9% 500 ml 500 ml @ 167 mls/hr IVPB Q12H [facility] Rx#: [id number] Output: Urine 1350 700 725 Other: Voiding Method Urinal Urinal # Voids 2 Weight 81.5 kg - Constitutional General appearance: no acute distress - Respiratory Respiratory: bilateral: wheezing - Cardiovascular Rhythm: regular - Gastrointestinal General gastrointestinal: soft, no tenderness - Integumentary Integumentary: no rash - Neurologic Neurologic: CNII-XII intact - Psychiatric Psychiatric: A&O x's 3 Results CBC & Chem 7: 07/18/24 08:12 07/18/24 08:12 Labs: Abnormal Lab Results - Last 24 Hours (Table) 07/18/24 07/18/24 07/18/24 Range/Units 06:14 08:12 08:12 WBC 54.65 H* (4.50-10.00) 10*3/uL RBC 3.54 L (4.40-5.60) 10*6/uL Hgb 11.3 L (13.0-17.0) g/dL Hct 35.6 L (39.6-50.0) % MCV 100.6 H (80.0-97.0) fL MCHC 31.7 L (32.0-37.0) g/dL Immature Gran # 1.97 H (0.00-0.04) 10*3/uL Neutrophils # (Manual) 49.73 H (1.3-7.7) k/uL Monocytes # (Manual) 1.09 H (0-1.0) k/uL Sodium 135 L (137-145) mmol/L Creatinine 0.55 L (0.66-1.25) mg/dL Glucose 166 H (74-99) mg/dL POC Glucose (mg/dL) 148 H (70-110) mg/dL 07/18/24 Range/Units 11:42 WBC (4.50-10.00) 10*3/uL RBC (4.40-5.60) 10*6/uL Hgb (13.0-17.0) g/dL Hct (39.6-50.0) % MCV (80.0-97.0) fL MCHC (32.0-37.0) g/dL Immature Gran # (0.00-0.04) 10*3/uL Neutrophils # (Manual) (1.3-7.7) k/uL Monocytes # (Manual) (0-1.0) k/uL Sodium (137-145) mmol/L Creatinine (0.66-1.25) mg/dL Glucose (74-99) mg/dL POC Glucose (mg/dL) 309 H (70-110) mg/dL Microbiology - Last 24 Hours (Table) 07/17/24 12:30 Acid Fast Bacilli Smear - Preliminary Bronchoalviolar Lavage - Right 07/16/24 17:46 Gram Stain - Preliminary Sputum Sputum Culture - Preliminary Gram Neg Bacilli 07/17/24 12:30 Gram Stain - Preliminary Bronchoalviolar Lavage - Right Bronchial Washings Culture - Preliminary 07/16/24 15:40 Blood Culture - Preliminary Blood Assessment and Plan (1) Mass of upper lobe of right lung Current Visit: Yes Status: Acute Code(s): R91.8 - OTHER NONSPECIFIC ABNORMAL FINDING OF LUNG FIELD SNOMED Code(s): 767320938 (2) Leukemoid reaction Current Visit: Yes Status: Acute Code(s): D72.823 - LEUKEMOID REACTION SNOMED Code(s): 58707347 (3) Normocytic anemia Current Visit: Yes Status: Acute Code(s): D64.9 - ANEMIA, UNSPECIFIED SNOMED Code(s): 128590593 Plan: #Right lung mass - Presented with intermittent cough and hemoptysis that became more persistent over the past month - CT chest on 07/08/2024 noted suspicious right upper lobe lung mass with fluid and gas in addition to smaller bilateral pulmonary nodules and right hilar lymp hadenopathy - Outpatient bronchoscopy attempted on 07/16/2024 was aborted due to hypotension and was subsequently admitted and started on IV antibiotics - He had bronchoscopy performed inpatient with biopsy of the right upper lobe pending - In addition, CT abdomen/pelvis on 07/18/2024 noted suspicious right hepatic lobe and right adrenal gland nodule - Given the radiographic findings, there is concern for metastatic primary lung cancer - The suspicion for malignancy was discussed on today's visit - We will await results of final pathology - If there is a primary lung cancer, biopsy samples can be sent for molecular profiling and PD-L1 testing - In addition, he would also need brain MRI to complete staging workup #Leukemoid reaction - He has neutrophilic leukocytosis likely due to suspected malignancy with superimposed infection as sputum was growing gram-negative bacilli - Continue antibiotics per primary team - No additional workup is needed for this at this time #Normocytic anemia - Likely secondary to inflammation from infection and malignancy - Anemia workup has been ordered from today's blood draw to rule out other etiologies Art Florian MD Time with Patient: Greater than 30 (Imaging studies reviewed prior to visit)
[2024-07-18 16:37] LABS: Glucose,Whole Blood 246 mg/dL (70-110)
[2024-07-18] MEDS ORDERED: VANCOMYCIN TROUGH DUE 1 EACH MISC MISCELLANE ONE (17:00)
[2024-07-18] MEDS: NICOTINE 14MG/24HR PATCH TRANSDERM SCH (17:25)
[2024-07-18] MEDS: INSULIN LISPRO (HumaLOG) 100 UNIT/ML 10 mL VL SQ SCH (17:25)
--- NOTE | 2024-07-18 19:26 | P.PN ---
Subjective Progress Note Date: 07/18/24 This is a 68-year-old male patient with a large right upper lobe mass who initially presented to my office on 07/10/2024 for ongoing respiratory complaints of cough and episodes of hemoptysis has been going on for the past several months. The patient was coughing on some bright light blood and small amounts. He was also getting progressively more short of breath. Chest x-ray was done on outpatient basis and the patient was found to have a masslike consolidation in the right upper lobe along with regions of gas and fluid. The findings are highly suspicious for malignancy. Abscess was considered to be less likely. There was also some areas of consolidation and groundglass airspace around the right upper lobe which was concerning for infection versus lymphangitic spread. The patient also had another 2.3 cm hypodense lesion in the right hepatic lobe consistent with cysts. There was also asymmetry in the adrenal glands. He was having constitutional symptoms with around 12 pounds weight loss over the past several months he is a chronic smoker smokes around 1 pack of cigarettes a day. He retired last year. 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 No history of any recurrent pneumonias. No fever. No chills. He is known to have coronary artery disease and has undergone previous coronary stenting of the LAD back in 2020, maintained on a combination of aspirin and Plavix. He also has bicuspid aortic valve with mild aortic stenosis and moderate aortic regurgitation based on the JENNIFER that was done few years back. The patient was supposed to have an outpatient bronchoscopy and preoperatively, the patient was noted to be hypotensive. His systolic blood pressure was in the low 80s and high 70s. He was also having sinus tachycardia. Based on that, the procedure was canceled and the patient was admitted to the hospital via emergency department. Blood work shows a white cell count of 55.7 with a hemoglobin of 11.1 and a platelet count of 374. The patient had 90% neutrophilia. Normal coagulation profile. Normal renal function. Normal LFTs. Troponin was less than 0.01. Procalcitonin level was less than 0.2. UA was negative. Viral screen was negative. The patient was given IV fluids and his blood pressure responded nicely. He was started on a combination of Zosyn and vancomycin. This morning, the patient seems to be quite comfortable on 2 L of oxygen by nasal cannula. The white cell count was essentially on the decline and based on that it was decided to proceed with a bronchoscopy. A CTA of the chest was done yesterday in the emergency department that showed no evidence of any pulm embolism. There was redemonstration of a large right upper lobe masslike consolidation with regions of gas and fluid and soft tissue. This could be potentially necrotic neoplasm although an irregular pulmonary abscess cannot be completely ruled out. There is also increase in size of few new scattered pulmonary nodules throughout the lung concerning for metastases. On 07/18/2024, the patient is post bronchoscopy and right upper lobe biopsy. Also, a BAL of the right upper lobe was done. Meanwhile, the sputum sample was positive for gram-negative bacillus and the bronchioloalveolar lavage from the right upper lobe results are still pending. The patient remains IV Zosyn. Remains on oxygen at 3 L with a pulse ox of 99%. Afebrile at this point. Hemodynamically stable. The white cell count remains elevated at 54 with the hemoglobin of 11.3 and a platelet count of 392. Sodium level is at 135, BUN 11 with a creatinine 0.5. Procalcitonin was less than 0.2. TSH is at 2.3.CAT scan of the abdomen and pelvis was also done and the patient was found to have hypodense right hepatic lobe lesion measuring 3 cm, right adrenal nodule measuring 3 cm. Both are suggestive of metastases. Objective - Vital Signs Vital signs: Vital Signs Temp 98.2 F 07/18/24 09:46 Pulse 101 H 07/18/24 09:46 Resp 20 07/18/24 09:46 BP 93/59 07/18/24 09:46 Pulse Ox 98 07/18/24 09:46 FiO2 Intake & Output 07/17/24 07/18/24 07/18/24 18:59 06:59 18:59 Intake Total 950 1500 10 Output Total 400 1350 Balance 550 150 10 Weight 81.5 kg Intake: IV 950 10 Invasive Line 1 10 Intake, IV Titration 1500 Amount Piperacillin-Tazobactam 3 100 .375 gm In Sodium Chloride 0.9% 100 ml @ 25 mls/hr IVPB Q8HR [facility] Rx# :[id number] Sodium Chloride 0.9% 1, 900 000 ml @ 75 mls/hr IV . [id number] [facility] Rx#:[id number] Vancomycin 1,500 mg In 500 Sodium Chloride 0.9% 500 ml 500 ml @ 167 mls/hr IVPB Q12H [facility] Rx#: [id number] Output: Urine 400 1350 Other: Voiding Method Toilet Urinal Urinal Urinal # Voids 1 2 - Exam The patient appeared well nourished and normally developed. Vital signs as documented. Comfortable on 3 L of oxygen by nasal cannula Head exam is unremarkable. No scleral icterus or corneal arcus noted. Neck is without jugular venous distension, thyromegaly, or carotid bruits. Carotid upstrokes are brisk bilaterally. Lungs are clear to auscultation and percussion. Diminished breath sounds in the lungs right more than left. Cardiac exam reveals the PMI to be normally sized and situated. Rhythm is regular. First and second heart sounds normal. No murmurs, rubs or gallops. Abdominal exam reveals normal bowel sounds, no masses, no organomegaly and no aortic enlargement. Extremities are nonedematous and both femoral and pedal pulses are normal. Examination of the skin revealed no evidence of significant rashes, suspicious appearing nevi or other concerning lesions. Neurologically, the patient is awake and alert and the patient does not have any focal neurological deficit. Cranial nerves are essentially intact. - Labs CBC & Chem 7: 07/18/24 08:12 07/18/24 08:12 Labs: Abnormal Lab Results - Last 24 Hours (Table) 07/17/24 07/17/24 07/18/24 Range/Units 11:32 11:32 06:14 WBC 41.60 H (4.50-10.00) 10*3/uL RBC 3.31 L (4.40-5.60) 10*6/uL Hgb 10.7 L (13.0-17.0) g/dL Hct 33.0 L (39.6-50.0) % MCV 99.7 H (80.0-97.0) fL MCH 32.3 H (27.0-32.0) pg MCHC (32.0-37.0) g/dL Immature Gran # 1.52 H (0.00-0.04) 10*3/uL Neutrophils # 36.54 H (1.80-7.70) 10*3/uL Neutrophils # (Manual) (1.3-7.7) k/uL Monocytes # 1.67 H (0.20-1.00) 10*3/uL Monocytes # (Manual) (0-1.0) k/uL Basophils # 0.15 H (0.00-0.10) 10*3/uL Sodium 135 L (137-145) mmol/L Creatinine 0.49 L (0.66-1.25) mg/dL Glucose 108 H (74-99) mg/dL POC Glucose (mg/dL) 148 H (70-110) mg/dL Alkaline Phosphatase 184 H (38-126) U/L Total Protein 5.4 L (6.3-8.2) g/dL Albumin 2.8 L (3.5-5.0) g/dL 07/18/24 07/18/24 Range/Units 08:12 08:12 WBC 54.65 H* (4.50-10.00) 10*3/uL RBC 3.54 L (4.40-5.60) 10*6/uL Hgb 11.3 L (13.0-17.0) g/dL Hct 35.6 L (39.6-50.0) % MCV 100.6 H (80.0-97.0) fL MCH (27.0-32.0) pg MCHC 31.7 L (32.0-37.0) g/dL Immature Gran # 1.97 H (0.00-0.04) 10*3/uL Neutrophils # (1.80-7.70) 10*3/uL Neutrophils # (Manual) 49.73 H (1.3-7.7) k/uL Monocytes # (0.20-1.00) 10*3/uL Monocytes # (Manual) 1.09 H (0-1.0) k/uL Basophils # (0.00-0.10) 10*3/uL Sodium 135 L (137-145) mmol/L Creatinine 0.55 L (0.66-1.25) mg/dL Glucose 166 H (74-99) mg/dL POC Glucose (mg/dL) (70-110) mg/dL Alkaline Phosphatase (38-126) U/L Total Protein (6.3-8.2) g/dL Albumin (3.5-5.0) g/dL Microbiology - Last 24 Hours (Table) 07/16/24 17:46 Gram Stain - Preliminary Sputum Sputum Culture - Preliminary Gram Neg Bacilli 07/17/24 12:30 Gram Stain - Preliminary Bronchoalviolar Lavage - Right Bronchial Washings Culture - Preliminary 07/16/24 15:40 Blood Culture - Preliminary Blood Assessment and Plan Plan: Right upper lobe mass. Initial CAT scan of the chest showed a 12.4 x 9 cm mass occupying the majority of the right upper lobe extending into the right hilum. Within the mass, there is areas of fluid and gas and there is also some surrounding area of consolidation. Obviously, the findings are highly suspicious for necrotic neoplasm involving the right upper lobe although the possibility of a superinfection or a lung abscess cannot be completely ruled out. The patient was hospitalized for hypotension and tachycardia and the bronchoscopy that was scheduled on 07/16/2024 was canceled due to hypotension and tachycardia. Overnight, the patient was started IV fluids and his history much more comfortable. Repeat CAT scan of the chest was done redemonstrating the same findings in the right upper lobe with few scattered nodular densities consistent with metastatic disease. As mentioned, findings are highly suspicious for malignancy especially the patient has been having episodes of hemoptysis recalcitrant symptoms of weight loss and worsening shortness of breath. He is a chronic smoker, carries [id number] smoking history. Hepatic and adrenal lesions, 3 cm each, please refer to the CAT scan of the abdomen pelvis. consider metastases. Suspect right upper lobe pneumonia abscess in addition to a mass. Sputum sample is positive for gram-negative bacillus. Awaiting the results of the BAL. Procalcitonin level is low at less than 0.2. Currently afebrile. Hemoptysis secondary to above Hypotension/tachycardia. Rule out underlying infection/sepsis, responded to IV fluids. The patient is currently on a combination of Zosyn and vancomycin. Acute leukocytosis, improving. Procalcitonin level is not elevated. This could be potentially also reactive/leukemoid reaction to malignancy Coronary artery disease with previous coronary stenting of the LAD back in 2020 History of bicuspid aortic valve with mild aortic stenosis and moderate aortic regurgitation Hyperlipidemia Diabetes mellitus type 2 COPD, FEV1 of 41% of predicted, 1.37 L. Plan Titrate oxygen flow to maintain saturation above 90%, currently on 2 L Hemodynamically stable Continue IV fluids Continue IV Zosyn Bronchoscopy and right upper lobe biopsy of the bronchioloalveolar lavage done and the results are still pending CAT scan of the abdomen and pelvis was noted Oncology consultation Will make further recommendations based on the findings. Heme Plavix on hold should there be need for further interventions or biopsies Continue the rest of the home medications Will follow Time with Patient: Greater than 30
[2024-07-18 20:11] LABS: Glucose,Whole Blood 238 mg/dL (70-110)
[2024-07-19 00:57] LABS: % Iron Saturation 7.69 (15.00-50.00); Iron 20 UG/DL (65-175); Total Iron Binding Capacity 260 UG/DL (228-460)
--- NOTE | 2024-07-19 02:31 | PN ---
PROGRESS NOTE DATE OF SERVICE: 07/18/2024 SUBJECTIVE: This 68-year-old gentleman admitted with significant right-sided lung lesions, possibly abscess versus malignant lesion, had bronchoscopy and as well as biopsy and bronchoalveolar lavage also by Dr. Nelson. Bloody secretions are noted. The patient also had elevated white count, almost to the point of leukemoid reaction at this time. PAST MEDICAL HISTORY: Reviewed. REVIEW OF SYSTEMS: Fourteen-point review is negative except as mentioned. CURRENT MEDICATIONS: Reviewed. PHYSICAL EXAMINATION: VITAL SIGNS: Pulse is 101, blood pressure 115/67, respirations 18. CHEST: Few scattered rhonchi. ABDOMEN: Soft. NERVOUS SYSTEM: Nonfocal. LABORATORY DATA: WBC 4.65. Other labs are noted. ASSESSMENT: 1. Right-sided lung abscess, possibly with the sepsis present on admission. 2. Status post bronchoscopy. 3. Microcytic anemia. 4. Hepatic lesions, rule out malignancy. 5. History of EtOH. 6. Diabetes mellitus, type 2. 7. Hypertension. 8. Hyperlipidemia. 9. History of nicotine dependence. 10.Multiple complex medical issues. RECOMMENDATIONS: Continue current management. Continue with broad-spectrum IV antibiotics. Follow closely with multiple consultants group. Sputum culture showing gram-negative bacilli. Follow closely with Infectious Disease, Hematology, Oncology and Pulmonary. Repeat labs. Guarded prognosis. Further recommendations to follow. MMODL / IJN: [id number] /
[2024-07-19 06:19] LABS: Glucose,Whole Blood 121 mg/dL (70-110)
[2024-07-19 08:09] LABS: HCT 33.7 % (39.6-50.0); HGB 10.8 g/dL (13.0-17.0); MCH 32.2 pg (27.0-32.0); MCV 100.6 fL (80.0-97.0); Mean Platelet Volume 10.4 fL (9.5-12.2); Platelet Count 362 10*3/uL (140-440); RBC 3.35 10*6/uL (4.40-5.60); RDW 15.8 % (11.5-14.5); WBC 38.61 10*3/uL (4.50-10.00)
[2024-07-19 08:29] LABS: ALT 18 U/L (4-49); AST 27 U/L (17-59); African American GFR (CKD) >90 (>60 ml/min/1.73 sqM); Alkaline Phosphatase 240 U/L (38-126); Anion Gap 7 mmol/L; Blood Urea Nitrogen 8 mg/dL (9-20); Calcium 8.7 mg/dL (8.4-10.2); Carbon Dioxide 29 mmol/L (22-30); Chloride 101 mmol/L (98-107); Glucose 75 mg/dL (74-99); Non-African American GFR(CKD) >90 (>60 ml/min/1.73 sqM); Potassium 4.1 mmol/L (3.5-5.1); Sodium 137 mmol/L (137-145); Total Bilirubin 0.7 mg/dL (0.2-1.3); Total Protein 5.8 g/dL (6.3-8.2)
[2024-07-19 09:40] LABS: Anisocytosis (M) Present; Eosinophils # (M) 1.54 k/uL (0-0.7); Lymphocytes # (M) 1.16 k/uL (1.0-4.8); Monocytes # (M) 1.54 k/uL (0-1.0); Neutrophils # (M) 34.36 k/uL (1.3-7.7); Neutrophils % (M) 89 %; Nucleated Red Blood Cells 0 /100 WBC (0-0); Total Cells Counted 100
[2024-07-19 09:41] LABS: Spherocytes Present
--- NOTE | 2024-07-19 10:19 | P.CONS ---
History of Present Illness - Reason for Consult Consult date: 07/18/24 Sepsis Requesting physician: Emma Tamayo - Chief Complaint Shortness of breath and cough x weeks - History of Present Illness Patient is a 68-year-old male with a past medical history significant for diabetes mellitus hypertension hyperlipidemia coronary artery disease has been dealing with respiratory symptoms of shortness of breath cough and sputum production that has been going on since 07/10/2024 and this patient has been treated with multiple courses of antibiotics patient did have a cough moderate intensity and did have hemoptysis patient did have masslike consolidation in the right upper lobe lung with region of gas and fluid for the patient was scheduled to have a outpatient bronchoscopy hide the patient was noticed to be hypotensive for the patient has been admitted to the hospital patient did have recent CT of the chest that was negative for PE did shows large right upper lobe masslike consolidation patient with presentation to the hospital was afebrile and no fever have recorded subsequently patient was tachycardic hypoxic currently on 3 L nasal cannula oxygen patient did have a white count of 55.76 with a left shift creatinine 0.71 electrolytes are normal liver enzymes are normal urine has been negative influenza RSV COVID testing negative sputum culture growing gram- negative bacilli blood culture has been negative patient has been treated with a course of vancomycin and Zosyn infectious disease was consulted for sepsis patient also have abdominal pelvis CT hyperdense medial right hepatic lobe lesion metastasis is possible in right adrenal nodule Review of Systems Positive point and negatives has been mentioned in the HPI, complete review of systems was performed and all other systems are negative Past Medical History Past Medical History: Coronary Artery Disease (CAD), Diabetes Mellitus, Hyperlipidemia, Hypertension Additional Past Medical History / Comment(s): bleeding with stools several yrs. ago, Type II DM, difficulty breathing since 2024 after a "bad cold". right lung mass July 13 History of Any Multi-Drug Resistant Organisms: None Reported Past Surgical History: Heart Catheterization With Stent, Hernia Repair Additional Past Surgical History / Comment(s): BILATERAL CATARACT SURGERY, COLONOSCOPY, JENNIFER 10/24, cardiac stent 2021 Past Anesthesia/Blood Transfusion Reactions: No Reported Reaction Additional Past Anesthesia/Blood Transfusion Reaction / Comm: no hx blood transfusion Date of Last Stent Placement:: 2021 Past Psychological History: No Psychological Hx Reported Smoking Status: Current every day smoker Past Alcohol Use History: None Reported, Occasional Additional Past Alcohol Use History / Comment(s): started smoking at age 14, SMOKES 1ppd 2 DRINKS A DAY Past Drug Use History: None Reported, Marijuana Additional Drug Use History / Comment(s): uses marijuana occasionally - Past Family History Mother Family Medical History: Hyperlipidemia, Hypertension Brother(s) Family Medical History: Coronary Artery Disease (CAD) Additional Family Medical History / Comment(s): cardiac stent Medications and Allergies Home Medications Medication Instructions Recorded Confirmed Type Glimepiride [Amaryl] 1 mg PO HS 04/30/18 07/16/24 History Pioglitazone [Actos] 45 mg PO DAILY 04/30/18 07/16/24 History lisinopriL [Zestril] 5 mg PO DAILY 04/30/18 07/16/24 History Aspirin 81 mg PO DAILY 10/19/20 07/16/24 History Empagliflozin [Jardiance] 25 mg PO DAILY 10/19/20 07/16/24 History Atorvastatin [Lipitor] 80 mg PO HS 07/14/24 07/16/24 History Albuterol Sulfate [Albuterol 2 puff INHALATION RT-Q4H PRN 07/16/24 07/16/24 History Sulfate Hfa] Allergies Allergy/AdvReac Type Severity Reaction Status Date / Time No Known Allergies Allergy Verified 07/16/24 17:37 Physical Exam Vitals: Vital Signs Temp Pulse Resp BP Pulse Ox 07/18/24 12:26 101 H 18 115/67 96 07/18/24 09:46 98.2 F 101 H 20 93/59 98 07/18/24 09:45 101 H 20 07/18/24 04:00 98.2 F 101 H 20 99/61 96 07/18/24 02:00 101 H 20 07/18/24 00:00 97.6 F 104 H 20 91/51 95 07/17/24 20:00 97.9 F 101 H 20 91/52 95 07/17/24 17:00 102 H 20 117/64 95 07/17/24 15:00 94 F L 102 H 20 91/53 94 L 07/17/24 14:30 103 H 20 115/67 94 L 07/17/24 14:15 84 20 105/59 93 L 07/17/24 14:07 98 16 110/54 94 L 07/17/24 13:53 95 16 98/54 96 07/17/24 13:38 97.5 F L 98 16 135/63 98 Intake and Output 07/17/24 07/18/24 07/18/24 22:59 06:59 14:59 Intake Total 1500 10 Output Total 1350 Balance 150 10 Intake: IV 10 Invasive Line 1 10 Intake, IV Titration 1500 Amount Piperacillin-Tazobactam 3 100 .375 gm In Sodium Chloride 0.9% 100 ml @ 25 mls/hr IVPB Q8HR [facility] Rx# :[id number] Sodium Chloride 0.9% 1, 900 000 ml @ 75 mls/hr IV . [id number] [facility] Rx#:[id number] Vancomycin 1,500 mg In 500 Sodium Chloride 0.9% 500 ml 500 ml @ 167 mls/hr IVPB Q12H [facility] Rx#: [id number] Output: Urine 1350 Other: Voiding Method Urinal Urinal Urinal # Voids 1 2 Weight 81.5 kg GENERAL DESCRIPTION: Elderly male up in the chair, no distress. No tachypnea or accessory muscle of respiration use. HEENT: Shows Pallor , no scleral icterus. Oral mucous membrane is dry. No pharyngeal erythema or thrush NECK: Trachea central, no thyromegaly. LUNGS: Unlabored breathing. Coarse breath sounds bilaterally HEART: S1, S2, regular rate and rhythm. No loud murmur ABDOMEN: Soft, no tenderness , guarding or rigidity, no organomegaly EXTREMITIES: No edema of feet. SKIN: No rash, no masses palpable. NEUROLOGICAL: The patient is awake, alert, oriented x3, mood and affect normal. Results CBC & Chem 7: 07/19/24 07:27 07/19/24 07:27 Labs: Abnormal Lab Results - Last 24 Hours (Table) 07/18/24 07/18/24 07/18/24 Range/Units 06:14 08:12 08:12 WBC 54.65 H* (4.50-10.00) 10*3/uL RBC 3.54 L (4.40-5.60) 10*6/uL Hgb 11.3 L (13.0-17.0) g/dL Hct 35.6 L (39.6-50.0) % MCV 100.6 H (80.0-97.0) fL MCHC 31.7 L (32.0-37.0) g/dL Immature Gran # 1.97 H (0.00-0.04) 10*3/uL Neutrophils # (Manual) 49.73 H (1.3-7.7) k/uL Monocytes # (Manual) 1.09 H (0-1.0) k/uL Sodium 135 L (137-145) mmol/L Creatinine 0.55 L (0.66-1.25) mg/dL Glucose 166 H (74-99) mg/dL POC Glucose (mg/dL) 148 H (70-110) mg/dL 07/18/24 Range/Units 11:42 WBC (4.50-10.00) 10*3/uL RBC (4.40-5.60) 10*6/uL Hgb (13.0-17.0) g/dL Hct (39.6-50.0) % MCV (80.0-97.0) fL MCHC (32.0-37.0) g/dL Immature Gran # (0.00-0.04) 10*3/uL Neutrophils # (Manual) (1.3-7.7) k/uL Monocytes # (Manual) (0-1.0) k/uL Sodium (137-145) mmol/L Creatinine (0.66-1.25) mg/dL Glucose (74-99) mg/dL POC Glucose (mg/dL) 309 H (70-110) mg/dL Microbiology - Last 24 Hours (Table) 07/16/24 17:46 Gram Stain - Preliminary Sputum Sputum Culture - Preliminary Gram Neg Bacilli 07/17/24 12:30 Gram Stain - Preliminary Bronchoalviolar Lavage - Right Bronchial Washings Culture - Preliminary 07/16/24 15:40 Blood Culture - Preliminary Blood Assessment and Plan (1) Pneumonia Current Visit: Yes Status: Acute Code(s): J18.9 - PNEUMONIA, UNSPECIFIED ORGANISM SNOMED Code(s): 723679261 (2) Leukocytosis Current Visit: Yes Status: Acute Code(s): D72.829 - ELEVATED WHITE BLOOD CELL COUNT, UNSPECIFIED SNOMED Code(s): 574816665 (3) Sepsis Current Visit: Yes Status: Acute Code(s): A41.9 - SEPSIS, UNSPECIFIED ORGANISM SNOMED Code(s): 35402552 Plan: 1patient presenting to the hospital with sepsis in this patient who did have a hypotension tachycardia elevated white count meeting criteria for SIRS/sepsis source right upper lobe possible post obstructive pneumonia in this patient with concern for possible malignancy and the patient is status postbiopsy. 2sputum culture currently growing gram-negative bacilli with ID sensitivities pending 3recommend treating the patient with Zosyn however discontinue vancomycin as the gram-positive has been seen and decreased risk for nephrotoxicity Multiple family members at bedside question answered We will follow on clinical condition and cultures to further adjust medication if needed Thank you for this consultation we will follow the patient along with you Dictation was produced using [employer] dictation software. please excuse any grammatical, word or spelling errors.
[2024-07-19 11:15] LABS: Glucose,Whole Blood 180 mg/dL (70-110)
--- NOTE | 2024-07-19 14:19 | P.PN ---
Subjective Progress Note Date: 07/19/24 This is a 68-year-old male patient with a large right upper lobe mass who initially presented to my office on 07/10/2024 for ongoing respiratory complaints of cough and episodes of hemoptysis has been going on for the past several months. The patient was coughing on some bright light blood and small amounts. He was also getting progressively more short of breath. Chest x-ray was done on outpatient basis and the patient was found to have a masslike consolidation in the right upper lobe along with regions of gas and fluid. The findings are highly suspicious for malignancy. Abscess was considered to be less likely. There was also some areas of consolidation and groundglass airspace around the right upper lobe which was concerning for infection versus lymphangitic spread. The patient also had another 2.3 cm hypodense lesion in the right hepatic lobe consistent with cysts. There was also asymmetry in the adrenal glands. He was having constitutional symptoms with around 12 pounds weight loss over the past several months he is a chronic smoker smokes around 1 pack of cigarettes a day. He retired last year. 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 No history of any recurrent pneumonias. No fever. No chills. He is known to have coronary artery disease and has undergone previous coronary stenting of the LAD back in 2020, maintained on a combination of aspirin and Plavix. He also has bicuspid aortic valve with mild aortic stenosis and moderate aortic regurgitation based on the JENNIFER that was done few years back. The patient was supposed to have an outpatient bronchoscopy and preoperatively, the patient was noted to be hypotensive. His systolic blood pressure was in the low 80s and high 70s. He was also having sinus tachycardia. Based on that, the procedure was canceled and the patient was admitted to the hospital via emergency department. Blood work shows a white cell count of 55.7 with a hemoglobin of 11.1 and a platelet count of 374. The patient had 90% neutrophilia. Normal coagulation profile. Normal renal function. Normal LFTs. Troponin was less than 0.01. Procalcitonin level was less than 0.2. UA was negative. Viral screen was negative. The patient was given IV fluids and his blood pressure responded nicely. He was started on a combination of Zosyn and vancomycin. This morning, the patient seems to be quite comfortable on 2 L of oxygen by nasal cannula. The white cell count was essentially on the decline and based on that it was decided to proceed with a bronchoscopy. A CTA of the chest was done yesterday in the emergency department that showed no evidence of any pulm embolism. There was redemonstration of a large right upper lobe masslike consolidation with regions of gas and fluid and soft tissue. This could be potentially necrotic neoplasm although an irregular pulmonary abscess cannot be completely ruled out. There is also increase in size of few new scattered pulmonary nodules throughout the lung concerning for metastases. On 07/18/2024, the patient is post bronchoscopy and right upper lobe biopsy. Also, a BAL of the right upper lobe was done. Meanwhile, the sputum sample was positive for gram-negative bacillus and the bronchioloalveolar lavage from the right upper lobe results are still pending. The patient remains IV Zosyn. Remains on oxygen at 3 L with a pulse ox of 99%. Afebrile at this point. Hemodynamically stable. The white cell count remains elevated at 54 with the hemoglobin of 11.3 and a platelet count of 392. Sodium level is at 135, BUN 11 with a creatinine 0.5. Procalcitonin was less than 0.2. TSH is at 2.3.CAT scan of the abdomen and pelvis was also done and the patient was found to have hypodense right hepatic lobe lesion measuring 3 cm, right adrenal nodule measuring 3 cm. Both are suggestive of metastases. 07/19/2024, the patient is feeling well. Pulse ox is 97% on 2 L of oxygen by nasal cannula. On room air oxygen, his pulse ox drops of 87% and the patient will need home O2. The sputum sample was positive for gram-negative bacillus. Final culture still pending. Meanwhile, the bronchoalveolar lavage of the right upper lobe has not shown any microbial growth. Noted at time of the bronchoscopy, the patient was already receiving antibiotics and he remains on IV Zosyn. Rest of the medications are unchanged. Final pathology from the right upper lobe biopsies are still not available. The white cell count is down to 38.6. Hemoglobin is at 10.6. Electrolytes are normal. BUN is at 8 with a creatinine of 0.4. Tolerating diet. No altered mentation. No other complaints otherwise. Objective - Vital Signs Vital signs: Vital Signs Temp 98.0 F 07/19/24 07:54 Pulse 113 H 07/19/24 08:11 Resp 16 07/19/24 08:11 BP 109/65 07/19/24 07:54 Pulse Ox 98 07/19/24 07:54 FiO2 Intake & Output 07/18/24 07/19/24 07/19/24 18:59 06:59 18:59 Intake Total 20 560 608 Output Total 1725 500 Balance -1705 60 608 Weight 81.465 kg Intake: IV 20 20 10 Invasive Line 1 20 20 10 Oral 540 598 Output: Urine 1725 500 Other: Voiding Method Urinal Urinal Urinal - Exam The patient appeared well nourished and normally developed. Vital signs as documented. Comfortable on 3 L of oxygen by nasal cannula Head exam is unremarkable. No scleral icterus or corneal arcus noted. Neck is without jugular venous distension, thyromegaly, or carotid bruits. Carotid upstrokes are brisk bilaterally. Lungs are clear to auscultation and percussion. Diminished breath sounds in the lungs right more than left. Cardiac exam reveals the PMI to be normally sized and situated. Rhythm is regular. First and second heart sounds normal. No murmurs, rubs or gallops. Abdominal exam reveals normal bowel sounds, no masses, no organomegaly and no aortic enlargement. Extremities are nonedematous and both femoral and pedal pulses are normal. Examination of the skin revealed no evidence of significant rashes, suspicious appearing nevi or other concerning lesions. Neurologically, the patient is awake and alert and the patient does not have any focal neurological deficit. Cranial nerves are essentially intact. - Labs CBC & Chem 7: 07/19/24 07:27 07/19/24 07:27 Labs: Abnormal Lab Results - Last 24 Hours (Table) 07/18/24 07/18/24 07/18/24 Range/Units 08:12 08:12 08:12 WBC (4.50-10.00) 10*3/uL RBC (4.40-5.60) 10*6/uL Hgb (13.0-17.0) g/dL Hct (39.6-50.0) % MCV (80.0-97.0) fL MCH (27.0-32.0) pg Immature Gran # (0.00-0.04) 10*3/uL Neutrophils # (Manual) 49.73 H (1.3-7.7) k/uL Monocytes # (Manual) 1.09 H (0-1.0) k/uL Eosinophils # (Manual) (0-0.7) k/uL BUN (9-20) mg/dL Creatinine (0.66-1.25) mg/dL POC Glucose (mg/dL) (70-110) mg/dL Iron 20 L (65-175) UG/DL % Saturation 7.69 L (15.00-50.00) Transferrin 186.0 L (204.0-354.0) mg/dL Ferritin 1205.0 H (22.0-322.0) ng/mL Alkaline Phosphatase (38-126) U/L Total Protein (6.3-8.2) g/dL Albumin (3.5-5.0) g/dL Vitamin B12 1496.0 H (200.0-944.0) pg/mL Folate 2.00 L (4.40-31.00) ng/mL 07/18/24 07/18/24 07/18/24 Range/Units 11:42 16:35 20:10 WBC (4.50-10.00) 10*3/uL RBC (4.40-5.60) 10*6/uL Hgb (13.0-17.0) g/dL Hct (39.6-50.0) % MCV (80.0-97.0) fL MCH (27.0-32.0) pg Immature Gran # (0.00-0.04) 10*3/uL Neutrophils # (Manual) (1.3-7.7) k/uL Monocytes # (Manual) (0-1.0) k/uL Eosinophils # (Manual) (0-0.7) k/uL BUN (9-20) mg/dL Creatinine (0.66-1.25) mg/dL POC Glucose (mg/dL) 309 H 246 H 238 H (70-110) mg/dL Iron (65-175) UG/DL % Saturation (15.00-50.00) Transferrin (204.0-354.0) mg/dL Ferritin (22.0-322.0) ng/mL Alkaline Phosphatase (38-126) U/L Total Protein (6.3-8.2) g/dL Albumin (3.5-5.0) g/dL Vitamin B12 (200.0-944.0) pg/mL Folate (4.40-31.00) ng/mL 07/19/24 07/19/24 07/19/24 Range/Units 06:17 07:27 07:27 WBC 38.61 H (4.50-10.00) 10*3/uL RBC 3.35 L (4.40-5.60) 10*6/uL Hgb 10.8 L (13.0-17.0) g/dL Hct 33.7 L (39.6-50.0) % MCV 100.6 H (80.0-97.0) fL MCH 32.2 H (27.0-32.0) pg Immature Gran # 0.71 H (0.00-0.04) 10*3/uL Neutrophils # (Manual) 34.36 H (1.3-7.7) k/uL Monocytes # (Manual) 1.54 H (0-1.0) k/uL Eosinophils # (Manual) 1.54 H (0-0.7) k/uL BUN 8 L (9-20) mg/dL Creatinine 0.45 L (0.66-1.25) mg/dL POC Glucose (mg/dL) 121 H (70-110) mg/dL Iron (65-175) UG/DL % Saturation (15.00-50.00) Transferrin (204.0-354.0) mg/dL Ferritin (22.0-322.0) ng/mL Alkaline Phosphatase 240 H (38-126) U/L Total Protein 5.8 L (6.3-8.2) g/dL Albumin 3.0 L (3.5-5.0) g/dL Vitamin B12 (200.0-944.0) pg/mL Folate (4.40-31.00) ng/mL Microbiology - Last 24 Hours (Table) 07/17/24 12:30 Gram Stain - Final Bronchoalviolar Lavage - Right Bronchial Washings Culture - Final 07/16/24 17:46 Gram Stain - Preliminary Sputum Sputum Culture - Preliminary Gram Neg Bacilli 07/16/24 15:40 Blood Culture - Preliminary Blood 07/17/24 12:30 Acid Fast Bacilli Smear - Preliminary Bronchoalviolar Lavage - Right Assessment and Plan Plan: Right upper lobe mass. Initial CAT scan of the chest showed a 12.4 x 9 cm mass occupying the majority of the right upper lobe extending into the right hilum. Within the mass, there is areas of fluid and gas and there is also some surrounding area of consolidation. Obviously, the findings are highly suspicious for necrotic neoplasm involving the right upper lobe although the possibility of a superinfection or a lung abscess cannot be completely ruled out. The patient was hospitalized for hypotension and tachycardia and the bronchoscopy that was scheduled on 07/16/2024 was canceled due to hypotension and tachycardia. Overnight, the patient was started IV fluids and his history much more comfortable. Repeat CAT scan of the chest was done redemonstrating the same findings in the right upper lobe with few scattered nodular densities consistent with metastatic disease. As mentioned, findings are highly suspic ious for malignancy especially the patient has been having episodes of hemoptysis recalcitrant symptoms of weight loss and worsening shortness of breath. He is a chronic smoker, carries [id number] smoking history. The sputum sample was showing gram-negative bacillus. The BAL from the right upper lobe is negative and noted the patient was on antibiotics at time of the bronchoscopy of the BAL. Hepatic and adrenal lesions, 3 cm each, please refer to the CAT scan of the abdomen pelvis. consider metastases. Suspect right upper lobe pneumonia abscess in addition to a mass. Sputum sample is positive for gram-negative bacillus. Awaiting the results of the BAL. Procalcitonin level is low at less than 0.2. Currently afebrile. Hemoptysis secondary to above Hypotension/tachycardia. Rule out underlying infection/sepsis, responded to IV fluids. The patient is currently on a combination of Zosyn and vancomycin. Acute leukocytosis, improving. Procalcitonin level is not elevated. This could be potentially also reactive/leukemoid reaction to malignancy, white cell count is improved compared to yesterday Coronary artery disease with previous coronary stenting of the LAD back in 2020 History of bicuspid aortic valve with mild aortic stenosis and moderate aortic regurgitation Hyperlipidemia Diabetes mellitus type 2 COPD, FEV1 of 41% of predicted, 1.37 L. Plan Titrate oxygen flow to maintain saturation above 90%, currently on 2 L, will likely need home O2 and arrange home O2 for this patient Hemodynamically stable Continue IV fluids to KVO Continue IV Zosyn for another 24 hours Bronchoscopy and right upper lobe biopsy of the bronchioloalveolar lavage done and the results are still pending and this may take till the end of the week to get the final pathologic diagnosis CAT scan of the abdomen and pelvis was noted Oncology consultation Will make further recommendations based on the findings. Keep Plavix on hold should there be need for further interventions or biopsies Continue the rest of the home medications Will follow Time with Patient: Greater than 30
--- NOTE | 2024-07-19 15:46 | P.PN ---
Subjective Progress Note Date: 07/19/24 Principal diagnosis: Reason for follow-up is pneumonia Patient is a 68-year-old male with a past medical history significant for diabetes mellitus hypertension hyperlipidemia coronary artery disease did have a right upper lobe mass and concern for possible postobstructive pneumonia prompted this admission On today's evaluation that is 07/19/2024,the patient remains to be afebrile, patient is on 2 L nasal cannula supplemental oxygen and denies any shortness of breath no chest pain or any worsening cough.Patient denies having any nausea or vomiting, no abdominal pain and no diarrhea has been reported. Patient white count is down to 38.61 creatinine 0.45 sputum is growing gram- negative Objective - Vital Signs Vital signs: Vital Signs Temp 98.0 F 07/19/24 07:54 Pulse 100 07/19/24 14:00 Resp 16 07/19/24 14:00 BP 107/62 07/19/24 11:43 Pulse Ox 97 07/19/24 11:43 FiO2 Intake & Output 07/18/24 07/19/24 07/19/24 18:59 06:59 18:59 Intake Total 20 560 1080 Output Total 1725 500 650 Balance -1705 60 430 Weight 81.465 kg Intake: IV 20 20 20 Invasive Line 1 20 20 20 Oral 540 1060 Output: Urine 1725 500 650 Other: Voiding Method Urinal Urinal Urinal - Exam GENERAL DESCRIPTION: An elderly male lying in bed in no distress RESPIRATORY SYSTEM: Unlabored breathing , decreased breath sounds at bases HEART: S1 S2 regular rate and rhythm , ABDOMEN: Soft , no tenderness EXTREMITIES: No edema feet - Labs CBC & Chem 7: 07/19/24 07:27 07/19/24 07:27 Labs: Abnormal Lab Results - Last 24 Hours (Table) 07/18/24 07/18/24 07/18/24 Range/Units 08:12 08:12 16:35 WBC (4.50-10.00) 10*3/uL RBC (4.40-5.60) 10*6/uL Hgb (13.0-17.0) g/dL Hct (39.6-50.0) % MCV (80.0-97.0) fL MCH (27.0-32.0) pg Immature Gran # (0.00-0.04) 10*3/uL Neutrophils # (Manual) (1.3-7.7) k/uL Monocytes # (Manual) (0-1.0) k/uL Eosinophils # (Manual) (0-0.7) k/uL BUN (9-20) mg/dL Creatinine (0.66-1.25) mg/dL POC Glucose (mg/dL) 246 H (70-110) mg/dL Hemoglobin A1c (<=6.0) % Iron 20 L (65-175) UG/DL % Saturation 7.69 L (15.00-50.00) Transferrin 186.0 L (204.0-354.0) mg/dL Ferritin 1205.0 H (22.0-322.0) ng/mL Alkaline Phosphatase (38-126) U/L Total Protein (6.3-8.2) g/dL Albumin (3.5-5.0) g/dL Vitamin B12 1496.0 H (200.0-944.0) pg/mL Folate 2.00 L (4.40-31.00) ng/mL 07/18/24 07/19/24 07/19/24 Range/Units 20:10 06:17 07:27 WBC (4.50-10.00) 10*3/uL RBC (4.40-5.60) 10*6/uL Hgb (13.0-17.0) g/dL Hct (39.6-50.0) % MCV (80.0-97.0) fL MCH (27.0-32.0) pg Immature Gran # (0.00-0.04) 10*3/uL Neutrophils # (Manual) (1.3-7.7) k/uL Monocytes # (Manual) (0-1.0) k/uL Eosinophils # (Manual) (0-0.7) k/uL BUN (9-20) mg/dL Creatinine (0.66-1.25) mg/dL POC Glucose (mg/dL) 238 H 121 H (70-110) mg/dL Hemoglobin A1c 7.4 H (<=6.0) % Iron (65-175) UG/DL % Saturation (15.00-50.00) Transferrin (204.0-354.0) mg/dL Ferritin (22.0-322.0) ng/mL Alkaline Phosphatase (38-126) U/L Total Protein (6.3-8.2) g/dL Albumin (3.5-5.0) g/dL Vitamin B12 (200.0-944.0) pg/mL Folate (4.40-31.00) ng/mL 07/19/24 07/19/24 07/19/24 Range/Units 07:27 07:27 11:14 WBC 38.61 H (4.50-10.00) 10*3/uL RBC 3.35 L (4.40-5.60) 10*6/uL Hgb 10.8 L (13.0-17.0) g/dL Hct 33.7 L (39.6-50.0) % MCV 100.6 H (80.0-97.0) fL MCH 32.2 H (27.0-32.0) pg Immature Gran # 0.71 H (0.00-0.04) 10*3/uL Neutrophils # (Manual) 34.36 H (1.3-7.7) k/uL Monocytes # (Manual) 1.54 H (0-1.0) k/uL Eosinophils # (Manual) 1.54 H (0-0.7) k/uL BUN 8 L (9-20) mg/dL Creatinine 0.45 L (0.66-1.25) mg/dL POC Glucose (mg/dL) 180 H (70-110) mg/dL Hemoglobin A1c (<=6.0) % Iron (65-175) UG/DL % Saturation (15.00-50.00) Transferrin (204.0-354.0) mg/dL Ferritin (22.0-322.0) ng/mL Alkaline Phosphatase 240 H (38-126) U/L Total Protein 5.8 L (6.3-8.2) g/dL Albumin 3.0 L (3.5-5.0) g/dL Vitamin B12 (200.0-944.0) pg/mL Folate (4.40-31.00) ng/mL Microbiology - Last 24 Hours (Table) 07/17/24 12:30 Gram Stain - Final Bronchoalviolar Lavage - Right Bronchial Washings Culture - Final 07/16/24 17:46 Gram Stain - Preliminary Sputum Sputum Culture - Preliminary Gram Neg Bacilli 07/16/24 15:40 Blood Culture - Preliminary Blood 07/17/24 12:30 Acid Fast Bacilli Smear - Preliminary Bronchoalviolar Lavage - Right Assessment and Plan (1) Pneumonia Current Visit: Yes Status: Acute Code(s): J18.9 - PNEUMONIA, UNSPECIFIED ORGANISM SNOMED Code(s): 752385126 (2) Leukocytosis Current Visit: Yes Status: Acute Code(s): D72.829 - ELEVATED WHITE BLOOD CELL COUNT, UNSPECIFIED SNOMED Code(s): 793337227 (3) Sepsis Current Visit: Yes Status: Acute Code(s): A41.9 - SEPSIS, UNSPECIFIED ORGANISM SNOMED Code(s): 52042834 Plan: 1patient presenting to the hospital with sepsis in this patient who did have a hypotension tachycardia elevated white count meeting criteria for SIRS/sepsis source right upper lobe possible post obstructive pneumonia in this patient with concern for possible malignancy and the patient is status postbiopsy. 2sputum culture currently growing gram-negative bacilli with ID sensitivities pending 3patient white count is trending down we will continue with Jj while waiting for the culture to finalize Dictation was produced using [employer] dictation software. please excuse any grammatical, word or spelling errors. Time with Patient: Less than 30
[2024-07-19 15:59] LABS: Glucose,Whole Blood 228 mg/dL (70-110)
[2024-07-19] MEDS: FOLIC ACID 1 MG TAB PO SCH (17:26)
[2024-07-19 20:05] LABS: Glucose,Whole Blood 140 mg/dL (70-110)
--- NOTE | 2024-07-20 03:51 | PN ---
PROGRESS NOTE DATE OF SERVICE: 07/19/2024 SUBJECTIVE: This 68-year-old gentleman was admitted with right lung abscess and possible sepsis. He is being closely monitored. The cultures and the biopsy report are pending at this time. Sputum culture showed gram-negative vastly. PHYSICAL EXAMINATION: VITAL SIGNS: Pulse is 106, blood pressure 106/64, respirations 16. CHEST: A few scattered rhonchi and crackles. ABDOMEN: Soft, nontender. LEGS: n NERVOUS SYSTEM: Nonfocal. LABORATORY DATA: WBC 13.61. ASSESSMENT: 1. Right-sided lung abscess, possibly with sepsis present on admission. 2. Rule out right saddle lung cancer with necrotizing center. 3. Status post bronchoscopy. 4. Microcytic anemia. 5. Hepatic lesion, rule out malignancy. 6. History of EtOH. 7. Diabetes mellitus, type 2. 8. Hypertension. 9. Hyperlipidemia. 10.Nicotine dependence. 11.Multiple complex medical issues. RECOMMENDATIONS: Recommend to continue current management and treatment, repeat labs, broad- spectrum IV antibiotics. Guarded prognosis. Further recommendations to follow. MMODL / IJN: [id number] / MTDJolie
[2024-07-20 06:15] LABS: Glucose,Whole Blood 112 mg/dL (70-110)
[2024-07-20 06:57] LABS: Basophils # (A) 0.13 10*3/uL (0.00-0.10); Basophils % (A) 0.3 %; Eosinophils % (A) 0.3 %; HCT 32.7 % (39.6-50.0); HGB 10.5 g/dL (13.0-17.0); Lymphocytes # (A) 1.36 10*3/uL (0.90-5.00); Lymphocytes % (A) 3.4 %; MCH 31.5 pg (27.0-32.0); MCHC 32.1 g/dL (32.0-37.0); MCV 98.2 fL (80.0-97.0); Mean Platelet Volume 10.3 fL (9.5-12.2); Monocytes # (A) 1.79 10*3/uL (0.20-1.00); Monocytes % (A) 4.5 %; Neutrophils # (A) 34.97 10*3/uL (1.80-7.70); Neutrophils % (A) 88.1 %; Platelet Count 368 10*3/uL (140-440); RBC 3.33 10*6/uL (4.40-5.60); RDW 15.5 % (11.5-14.5); WBC 39.71 10*3/uL (4.50-10.00)
[2024-07-20 07:11] LABS: African American GFR (CKD) >90 (>60 ml/min/1.73 sqM); Anion Gap 9 mmol/L; Blood Urea Nitrogen 9 mg/dL (9-20); Calcium 9.2 mg/dL (8.4-10.2); Carbon Dioxide 32 mmol/L (22-30); Chloride 93 mmol/L (98-107); Glucose 81 mg/dL (74-99); Non-African American GFR(CKD) >90 (>60 ml/min/1.73 sqM); Sodium 134 mmol/L (137-145)
--- NOTE | 2024-07-20 07:36 | XR ---
EXAMINATION TYPE: XR chest 1V portable DATE OF EXAM: 07/20/2024 CLINICAL INDICATION: Male, 68 years old with history of rt lung ca, progress study. TECHNIQUE: Single AP portable upright view of the chest is obtained. COMPARISON: Chest x-ray from 3 days earlier FINDINGS: Background chronic emphysematous change with persistent right midlung masslike opacity. Le ft lung remains clear. Cardiac silhouette size is stable and within normal limits. Healed fracture ri ght clavicle redemonstrated. IMPRESSION: Persistent right midlung mass or neoplasm. No new acute pulmonary process. [facility] Sadi Henderson, , 07/20/2024 7:33 AM
[2024-07-20 11:47] LABS: Glucose,Whole Blood 148 mg/dL (70-110)
--- NOTE | 2024-07-20 16:32 | P.PN ---
Subjective Progress Note Date: 07/20/24 This is a 68-year-old male patient with a large right upper lobe mass who initially presented to my office on 07/10/2024 for ongoing respiratory complaints of cough and episodes of hemoptysis has been going on for the past several months. The patient was coughing on some bright light blood and small amounts. He was also getting progressively more short of breath. Chest x-ray was done on outpatient basis and the patient was found to have a masslike consolidation in the right upper lobe along with regions of gas and fluid. The findings are highly suspicious for malignancy. Abscess was considered to be less likely. There was also some areas of consolidation and groundglass airspace around the right upper lobe which was concerning for infection versus lymphangitic spread. The patient also had another 2.3 cm hypodense lesion in the right hepatic lobe consistent with cysts. There was also asymmetry in the adrenal glands. He was having constitutional symptoms with around 12 pounds weight loss over the past several months he is a chronic smoker smokes around 1 pack of cigarettes a day. He retired last year. 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 No history of any recurrent pneumonias. No fever. No chills. He is known to have coronary artery disease and has undergone previous coronary stenting of the LAD back in 2020, maintained on a combination of aspirin and Plavix. He also has bicuspid aortic valve with mild aortic stenosis and moderate aortic regurgitation based on the JENNIFER that was done few years back. The patient was supposed to have an outpatient bronchoscopy and preoperatively, the patient was noted to be hypotensive. His systolic blood pressure was in the low 80s and high 70s. He was also having sinus tachycardia. Based on that, the procedure was canceled and the patient was admitted to the hospital via emergency department. Blood work shows a white cell count of 55.7 with a hemoglobin of 11.1 and a platelet count of 374. The patient had 90% neutrophilia. Normal coagulation profile. Normal renal function. Normal LFTs. Troponin was less than 0.01. Procalcitonin level was less than 0.2. UA was negative. Viral screen was negative. The patient was given IV fluids and his blood pressure responded nicely. He was started on a combination of Zosyn and vancomycin. This morning, the patient seems to be quite comfortable on 2 L of oxygen by nasal cannula. The white cell count was essentially on the decline and based on that it was decided to proceed with a bronchoscopy. A CTA of the chest was done yesterday in the emergency department that showed no evidence of any pulm embolism. There was redemonstration of a large right upper lobe masslike consolidation with regions of gas and fluid and soft tissue. This could be potentially necrotic neoplasm although an irregular pulmonary abscess cannot be completely ruled out. There is also increase in size of few new scattered pulmonary nodules throughout the lung concerning for metastases. On 07/18/2024, the patient is post bronchoscopy and right upper lobe biopsy. Also, a BAL of the right upper lobe was done. Meanwhile, the sputum sample was positive for gram-negative bacillus and the bronchioloalveolar lavage from the right upper lobe results are still pending. The patient remains IV Zosyn. Remains on oxygen at 3 L with a pulse ox of 99%. Afebrile at this point. Hemodynamically stable. The white cell count remains elevated at 54 with the hemoglobin of 11.3 and a platelet count of 392. Sodium level is at 135, BUN 11 with a creatinine 0.5. Procalcitonin was less than 0.2. TSH is at 2.3.CAT scan of the abdomen and pelvis was also done and the patient was found to have hypodense right hepatic lobe lesion measuring 3 cm, right adrenal nodule measuring 3 cm. Both are suggestive of metastases. 07/19/2024, the patient is feeling well. Pulse ox is 97% on 2 L of oxygen by nasal cannula. On room air oxygen, his pulse ox drops of 87% and the patient will need home O2. The sputum sample was positive for gram-negative bacillus. Final culture still pending. Meanwhile, the bronchoalveolar lavage of the right upper lobe has not shown any microbial growth. Noted at time of the bronchoscopy, the patient was already receiving antibiotics and he remains on IV Zosyn. Rest of the medications are unchanged. Final pathology from the right upper lobe biopsies are still not available. The white cell count is down to 38.6. Hemoglobin is at 10.6. Electrolytes are normal. BUN is at 8 with a creatinine of 0.4. Tolerating diet. No altered mentation. No other complaints otherwise. The patient is seen today July 20, 2024 in follow-up on the selective care unit. He is currently sitting up in a chair at the bedside. Awake and alert in no acute distress. Maintaining good O2 saturations in the mid 90s on 2 L/min per nasal cannula. Has been afebrile. Hemodynamically stable. Lung biopsy results are pending. Follow-up chest x-ray shows persistent right midlung mass/neoplasm. No acute pulmonary process. Sputum culture positive for Pseudomonas aeruginosa. He remains on Zosyn. Continued on albuterol as needed. Heparin for DVT prophylaxis. NicoDerm patch in place. White count 39.7. Hemoglobin 10.5. Platelets 368. Sodium 134. Potassium 4.0. Bicarb 32. BUN 9. Creatinine 0.59. Glucose 81. Objective - Vital Signs Vital signs: Vital Signs Temp 98.0 F 07/20/24 15:46 Pulse 106 H 07/20/24 15:46 Resp 16 07/20/24 15:46 BP 93/53 07/20/24 15:46 Pulse Ox 96 07/20/24 15:46 FiO2 Intake & Output 07/19/24 07/20/24 07/20/24 18:59 06:59 18:59 Intake Total 1320 20 730 Output Total 1350 800 575 Balance -30 -780 155 Weight 81.3 kg Intake: IV 20 20 10 Invasive Line 1 20 20 10 Oral 1300 720 Output: Urine 1350 800 575 Other: Voiding Method Urinal Urinal Urinal # Voids 1 - Exam GENERAL EXAM: Alert, pleasant 68-year-old male, up in a chair, on 2 L nasal cannula, comfortable in no apparent distress. HEAD: Normocephalic. EYES: Normal reaction of pupils, equal size. NOSE: Clear with pink turbinates. THROAT: No erythema or exudates. NECK: No masses, no JVD. CHEST: No chest wall deformity. LUNGS: Equal air entry with bilateral scattered rhonchi. CVS: S1 and S2 normal with no audible murmur, regular rhythm. ABDOMEN: No hepatosplenomegaly, normal bowel sounds, no guarding or rigidity. SPINE: No scoliosis or deformity SKIN: No rashes CENTRAL NERVOUS SYSTEM: No focal deficits, tone is normal in all 4 extremities. EXTREMITIES: There is no peripheral edema. No clubbing, no cyanosis. Peripheral pulses are intact. - Labs CBC & Chem 7: 07/20/24 06:04 07/20/24 06:04 Labs: Abnormal Lab Results - Last 24 Hours (Table) 07/19/24 07/20/24 07/20/24 Range/Units 20:03 06:04 06:04 WBC 39.71 H (4.50-10.00) 10*3/uL RBC 3.33 L (4.40-5.60) 10*6/uL Hgb 10.5 L (13.0-17.0) g/dL Hct 32.7 L (39.6-50.0) % MCV 98.2 H (80.0-97.0) fL Immature Gran # 1.36 H (0.00-0.04) 10*3/uL Neutrophils # 34.97 H (1.80-7.70) 10*3/uL Monocytes # 1.79 H (0.20-1.00) 10*3/uL Basophils # 0.13 H (0.00-0.10) 10*3/uL Sodium 134 L (137-145) mmol/L Chloride 93 L (98-107) mmol/L Carbon Dioxide 32 H (22-30) mmol/L Creatinine 0.59 L (0.66-1.25) mg/dL POC Glucose (mg/dL) 140 H (70-110) mg/dL 07/20/24 07/20/24 Range/Units 06:14 11:45 WBC (4.50-10.00) 10*3/uL RBC (4.40-5.60) 10*6/uL Hgb (13.0-17.0) g/dL Hct (39.6-50.0) % MCV (80.0-97.0) fL Immature Gran # (0.00-0.04) 10*3/uL Neutrophils # (1.80-7.70) 10*3/uL Monocytes # (0.20-1.00) 10*3/uL Basophils # (0.00-0.10) 10*3/uL Sodium (137-145) mmol/L Chloride (98-107) mmol/L Carbon Dioxide (22-30) mmol/L Creatinine (0.66-1.25) mg/dL POC Glucose (mg/dL) 112 H 148 H (70-110) mg/dL Microbiology - Last 24 Hours (Table) 07/16/24 17:46 Gram Stain - Final Sputum Sputum Culture - Final Pseudomonas aeruginosa 07/16/24 15:40 Blood Culture - Preliminary Blood Assessment and Plan Assessment: Right upper lobe mass. Initial CAT scan of the chest showed a 12.4 x 9 cm mass occupying the majority of the right upper lobe extending into the right hilum. Within the mass, there is areas of fluid and gas and there is also some surrounding area of consolidation. Obviously, the findings are highly suspicious for necrotic neoplasm involving the right upper lobe although the possibility of a superinfection or a lung abscess cannot be completely ruled out. Bronchoscopy with biopsies performed 07/17/2024. Results pending. Repeat CAT scan of the chest was done redemonstrating the same findings in the right upper lobe with few scattered nodular densities consistent with metastatic disease. As mentioned, findings are highly suspicious for malignancy especially the patient has been having episodes of hemoptysis recalcitrant symptoms of weight loss and worsening shortness of breath. The sputum sample was showing Pseudomonas aeruginosa. Remains on Zosyn Hepatic and adrenal lesions, 3 cm each, please refer to the CAT scan of the abd omen pelvis. Consider metastases. Suspect right upper lobe pneumonia abscess in addition to a mass. Sputum sample is positive for Pseudomonas aeruginosa. Hemoptysis secondary to above Hypotension/tachycardia. Rule out underlying infection/sepsis, responded to IV fluids. Acute leukocytosis, improving. Procalcitonin level is not elevated. This could be potentially also reactive/leukemoid reaction to malignancy Chronic smoker, carries [id number] smoking history. Coronary artery disease with previous coronary stenting of the LAD back in 2020 History of bicuspid aortic valve with mild aortic stenosis and moderate aortic regurgitation Hyperlipidemia Diabetes mellitus type 2 COPD, FEV1 of 41% of predicted, 1.37 L. Plan: The patient was seen and evaluated Chest x-ray, labs and medications reviewed Pathology still pending Remains on Zosyn for Pseudomonas Remains on bronchodilators Heparin for DVT prophylaxis Educated regarding complete smoking cessation NicoDerm patch in place We will continue to follow I have personally seen and examined the patient, performed the documentation and the assessment and plan as written. Number of minutes spent on the visit: 10 Dictation was produced using [employer] software. Please excuse any grammatical, word or spelling errors.
[2024-07-20 17:03] LABS: Glucose,Whole Blood 221 mg/dL (70-110)
--- NOTE | 2024-07-20 17:10 | P.PN ---
Subjective Progress Note Date: 07/20/24 Principal diagnosis: Reason for follow-up is pneumonia Patient is a 68-year-old male with a past medical history significant for diabetes mellitus hypertension hyperlipidemia coronary artery disease did have a right upper lobe mass and concern for possible postobstructive pneumonia prompted this admission On today's evaluation that is 07/20/2024, the patient continues to be afebrile, the patient is on 2 L nasal oxygen and breathing comfortably, the Pt denies having any chest pain and cough has decreased intensity getting more dry, the patient denies having any abdominal pain no vomiting or any diarrhea. Patient white count is 39.71 creatinine 0.59 sputum with Pseudomonas sensitive to Zosyn Objective - Vital Signs Vital signs: Vital Signs Temp 97.9 F 07/20/24 07:49 Pulse 111 H 07/20/24 08:00 Resp 16 07/20/24 08:00 BP 113/66 07/20/24 07:49 Pulse Ox 94 L 07/20/24 07:49 FiO2 Intake & Output 07/19/24 07/20/24 07/20/24 18:59 06:59 18:59 Intake Total 1320 20 490 Output Total 1350 800 Balance -30 -780 490 Weight 81.3 kg Intake: IV 20 20 10 Invasive Line 1 20 20 10 Oral 1300 480 Output: Urine 1350 800 Other: Voiding Method Urinal Urinal Urinal # Voids 1 - Exam GENERAL DESCRIPTION: An elderly male lying in bed in no distress RESPIRATORY SYSTEM: Unlabored breathing , decreased breath sounds at bases HEART: S1 S2 regular rate and rhythm , ABDOMEN: Soft , no tenderness EXTREMITIES: No edema feet - Labs CBC & Chem 7: 07/20/24 06:04 07/20/24 06:04 Labs: Abnormal Lab Results - Last 24 Hours (Table) 07/19/24 07/19/24 07/19/24 Range/Units 07:27 11:14 15:57 WBC (4.50-10.00) 10*3/uL RBC (4.40-5.60) 10*6/uL Hgb (13.0-17.0) g/dL Hct (39.6-50.0) % MCV (80.0-97.0) fL Immature Gran # (0.00-0.04) 10*3/uL Neutrophils # (1.80-7.70) 10*3/uL Monocytes # (0.20-1.00) 10*3/uL Basophils # (0.00-0.10) 10*3/uL Sodium (137-145) mmol/L Chloride (98-107) mmol/L Carbon Dioxide (22-30) mmol/L Creatinine (0.66-1.25) mg/dL POC Glucose (mg/dL) 180 H 228 H (70-110) mg/dL Hemoglobin A1c 7.4 H (<=6.0) % 07/19/24 07/20/24 07/20/24 Range/Units 20:03 06:04 06:04 WBC 39.71 H (4.50-10.00) 10*3/uL RBC 3.33 L (4.40-5.60) 10*6/uL Hgb 10.5 L (13.0-17.0) g/dL Hct 32.7 L (39.6-50.0) % MCV 98.2 H (80.0-97.0) fL Immature Gran # 1.36 H (0.00-0.04) 10*3/uL Neutrophils # 34.97 H (1.80-7.70) 10*3/uL Monocytes # 1.79 H (0.20-1.00) 10*3/uL Basophils # 0.13 H (0.00-0.10) 10*3/uL Sodium 134 L (137-145) mmol/L Chloride 93 L (98-107) mmol/L Carbon Dioxide 32 H (22-30) mmol/L Creatinine 0.59 L (0.66-1.25) mg/dL POC Glucose (mg/dL) 140 H (70-110) mg/dL Hemoglobin A1c (<=6.0) % 07/20/24 Range/Units 06:14 WBC (4.50-10.00) 10*3/uL RBC (4.40-5.60) 10*6/uL Hgb (13.0-17.0) g/dL Hct (39.6-50.0) % MCV (80.0-97.0) fL Immature Gran # (0.00-0.04) 10*3/uL Neutrophils # (1.80-7.70) 10*3/uL Monocytes # (0.20-1.00) 10*3/uL Basophils # (0.00-0.10) 10*3/uL Sodium (137-145) mmol/L Chloride (98-107) mmol/L Carbon Dioxide (22-30) mmol/L Creatinine (0.66-1.25) mg/dL POC Glucose (mg/dL) 112 H (70-110) mg/dL Hemoglobin A1c (<=6.0) % Microbiology - Last 24 Hours (Table) 07/16/24 15:40 Blood Culture - Preliminary Blood 07/17/24 12:30 Gram Stain - Final Bronchoalviolar Lavage - Right Bronchial Washings Culture - Final 07/16/24 17:46 Gram Stain - Preliminary Sputum Sputum Culture - Preliminary Gram Neg Bacilli Assessment and Plan (1) Pneumonia Current Visit: Yes Status: Acute Code(s): J18.9 - PNEUMONIA, UNSPECIFIED ORGANISM SNOMED Code(s): 551448296 (2) Leukocytosis Current Visit: Yes Status: Acute Code(s): D72.829 - ELEVATED WHITE BLOOD CELL COUNT, UNSPECIFIED SNOMED Code(s): 357424342 (3) Sepsis Current Visit: Yes Status: Acute Code(s): A41.9 - SEPSIS, UNSPECIFIED ORGANISM SNOMED Code(s): 75642568 Plan: 1patient presenting to the hospital with sepsis in this patient who did have a hypotension tachycardia elevated white count meeting criteria for SIRS/sepsis source right upper lobe possible post obstructive pneumonia in this patient with concern for possible malignancy and the patient is status postbiopsy. 2sputum culture currently growing Pseudomonas aeruginosa that is sensitive pathogen 3patient persistent leukocytosis could be steroid related patient to continue with Zosyn while inpatient monitor clinical course closely Dictation was produced using [employer] software. please excuse any grammatical, word or spelling errors. Time with Patient: Less than 30
[2024-07-20 20:06] LABS: Glucose,Whole Blood 227 mg/dL (70-110)
--- NOTE | 2024-07-21 04:26 | P.DS ---
Providers Date of admission: 07/16/24 18:14 Expected date of discharge: 07/20/24 Attending physician: Emma aTmayo Consults: 07/16/24 18:12 Consult Physician Urgent Consulting Provider: Juan Jose Nelson Consult Reason/Comments: lung mass Do you want consulting provider notified?: Already Contacted 07/17/24 16:19 Consult Physician Routine Consulting Provider: Hollie Ray Consult Reason/Comments: sepsis Do you want consulting provider notified?: Yes 07/18/24 10:31 Consult Physician Routine Consulting Provider: Daron Arnold Consult Reason/Comments: malignancy?? Do you want consulting provider notified?: Yes Primary care physician: Neo Guardado Hospital Course: Final diagnosis Right side lung abscess with sepsis, present on admission Rule out right saddle lung cancer with necrotizing center, status post bronchoscopy with biopsy which is pending Microcytic anemia Hepatic lesion rule out malignancy History of EtOH Diabetes mellitus, type II Hypertension Hyperlipidemia Continued ongoing nicotine dependence COPD, not in exacerbation Acute hypoxic respiratory failure likely secondary to COPD as well as possible lung cancer GI prophylaxis DVT prophylaxis Full code Discharge disposition Patient is being discharged in a stable condition with guarded prognosis to home. Patient will follow-up with Dr. Guardado in the outpatient setting upon discharge. Patient is to continue with current medications and outpatient follow-up with pulmonary as scheduled. Total time taken is greater than 35 minutes. Hospital course This is a 68 year-old male who was recently admitted with right lung abscess and possible sepsis being closely monitored with multiple consultations. Patient is status postbiopsy which is pending at this time. Cultures negative thus far and will continue on oral Augmentin on discharge with close outpatient follow-up with primary care provider with pulmonary with arrangements for oncology outpatient. Patient is afebrile with no reports of chest pain or shortness of breath and would like to discharge home. Currently awaiting biopsy and will need follow-up arranged. Patient will require oxygen on discharge to manage COPD. Please refer to other consultation notes for further HPI. Currently no reports of chest pain, no worsening shortness of breath, or palpitations. Patient is afebrile. No reports of nausea or vomiting and patient is tolerating diet. Patient will be discharged home today. Guarded prognosis Physical exam: Gen: This is a 68-year-old male who is awake, alert and oriented x 3, well- developed elderly appearing, thin built HEENT: Head is atraumatic, normocephalic. Pupils equal, round. Sclerae is anicteric. NECK: Supple. No JVD. No lymphadenopathy. No thyromegaly. LUNGS: Diminished breath sounds bilaterally otherwise clear to auscultation. No wheezes or rhonchi. No intercostal retractions. HEART: S1, S2 are muffled ABDOMEN: Soft. Bowel sounds are present. No masses. No tenderness. EXTREMITIES: No pedal edema. No calf tenderness. NEUROLOGICAL: Patient is awake, alert and oriented x3. Cranial nerves 2 through 12 are grossly intact. Please refer to medication reconciliation sheet for a list of medications. The impression and plan of care has been dictated by Debbie Valencia, Nurse Practitioner as directed. Anne MD I have performed a history and examination and MDM of this patient, discussed the same with the dictator, and agree with the dictator's assessment and plan as written ,documented as a scribe. Based on total visit time, I have performed more than 50% of the visit. Patient Condition at Discharge: Fair Plan - Discharge Summary Discharge Rx Participant: Yes New Discharge Prescriptions: New Amoxic-Pot Clav 875-125Mg [Augmentin 875-125] 1 tab PO Q12HR 10 Days #20 tab Nicotine 14Mg/24Hr Patch [Habitrol] 1 patch TRANSDERM DAILY #30 patch Mag Hydrox/Al Hydrox/Simeth [Maalox] 15 ml PO Q6HR PRN ml PRN Reason: Indigestion Calcium Carbonate [Tums] 1,000 mg PO Q4HR PRN tab PRN Reason: Dyspepsia Folic Acid 1 mg PO DAILY #30 tab Famotidine [Pepcid] 20 mg PO BID #60 tab Acetaminophen Tab [Tylenol] 650 mg PO Q6HR PRN tab PRN Reason: Mild Pain Or Fever > 100.5 Continue Pioglitazone [Actos] 45 mg PO DAILY Glimepiride [Amaryl] 1 mg PO HS Aspirin 81 mg PO DAILY Atorvastatin [Lipitor] 80 mg PO HS Albuterol Sulfate [Albuterol Sulfate Hfa] 2 puff INHALATION RT-Q4H PRN PRN Reason: Shortness Of Breath Empagliflozin [Jardiance] 25 mg PO DAILY Discontinued lisinopriL [Zestril] 5 mg PO DAILY Discharge Medication List Glimepiride [Amaryl] 1 mg PO HS 04/30/18 [History] Pioglitazone [Actos] 45 mg PO DAILY 04/30/18 [History] Aspirin 81 mg PO DAILY 10/19/20 [History] Empagliflozin [Jardiance] 25 mg PO DAILY 10/19/20 [History] Atorvastatin [Lipitor] 80 mg PO HS 07/14/24 [History] Albuterol Sulfate [Albuterol Sulfate Hfa] 2 puff INHALATION RT-Q4H PRN 07/16/24 [History] Acetaminophen Tab [Tylenol] 650 mg PO Q6HR PRN tab 07/20/24 [Rx] Amoxic-Pot Clav 875-125Mg [Augmentin 875-125] 1 tab PO Q12HR 10 Days #20 tab 07/20/24 [Rx] Calcium Carbonate [Tums] 1,000 mg PO Q4HR PRN tab 07/20/24 [Rx] Famotidine [Pepcid] 20 mg PO BID #60 tab 07/20/24 [Rx] Folic Acid 1 mg PO DAILY #30 tab 07/20/24 [Rx] Mag Hydrox/Al Hydrox/Simeth [Maalox] 15 ml PO Q6HR PRN ml 07/20/24 [Rx] Nicotine 14Mg/24Hr Patch [Habitrol] 1 patch TRANSDERM DAILY #30 patch 07/20/24 [Rx] Follow up Appointment(s)/Referral(s): Neo Guardado MD [Primary Care Provider] - 1-2 days Art Florian MD [STAFF PHYSICIAN] - 1 Week Juan Jose Nelson MD [STAFF PHYSICIAN] - 07/24/24 10:45 am Activity/Diet/Wound Care/Special Instructions: Activity limited until follow-up Follow-up with primary care provider charge Follow-up with oncology outpatient regarding biopsy report Follow-up with pulmonary outpatient Patient will require 2 L of oxygen to manage COPD on discharge Discharge Disposition: HOME SELF-CARE
[2024-07-21 06:06] LABS: Glucose,Whole Blood 107 mg/dL (70-110)
[2024-07-21 08:33] LABS: HCT 31.8 % (39.6-50.0); HGB 10.1 g/dL (13.0-17.0); MCH 31.4 pg (27.0-32.0); MCHC 31.8 g/dL (32.0-37.0); MCV 98.8 fL (80.0-97.0); Platelet Count 387 10*3/uL (140-440); RBC 3.22 10*6/uL (4.40-5.60); RDW 15.4 % (11.5-14.5); WBC 44.34 10*3/uL (4.50-10.00)
[2024-07-21 08:59] LABS: African American GFR (CKD) >90 (>60 ml/min/1.73 sqM); Anion Gap 7 mmol/L; Blood Urea Nitrogen 11 mg/dL (9-20); Calcium 9.1 mg/dL (8.4-10.2); Carbon Dioxide 33 mmol/L (22-30); Chloride 96 mmol/L (98-107); Glucose 69 mg/dL (74-99); Non-African American GFR(CKD) >90 (>60 ml/min/1.73 sqM); Potassium 3.9 mmol/L (3.5-5.1); Sodium 136 mmol/L (137-145)
--- NOTE | 2024-07-21 09:56 | P.DS ---
Providers Date of admission: 07/16/24 18:14 Expected date of discharge: 07/21/24 Attending physician: Emma Tamayo Consults: 07/16/24 18:12 Consult Physician Urgent Consulting Provider: Juan Jose Nelson Consult Reason/Comments: lung mass Do you want consulting provider notified?: Already Contacted 07/17/24 16:19 Consult Physician Routine Consulting Provider: Hollie Ray Consult Reason/Comments: sepsis Do you want consulting provider notified?: Yes 07/18/24 10:31 Consult Physician Routine Consulting Provider: Daron Arnold Consult Reason/Comments: malignancy?? Do you want consulting provider notified?: Yes Primary care physician: Neo Guardado Hospital Course: Final diagnosis Right side lung abscess with sepsis, present on admission Rule out right saddle lung cancer with necrotizing center, status post bronchoscopy with biopsy which is pending Microcytic anemia Hepatic lesion rule out malignancy History of EtOH Diabetes mellitus, type II Hypertension Hyperlipidemia Continued ongoing nicotine dependence COPD, not in exacerbation Acute hypoxic respiratory failure likely secondary to COPD as well as possible lung cancer GI prophylaxis DVT prophylaxis Full code Discharge disposition Patient is being discharged in a stable condition with guarded prognosis to home. Patient will follow-up with Dr. Guardado in the outpatient setting upon discharge. Patient is to continue with current medications and outpatient follow-up with pulmonary as scheduled. Total time taken is greater than 35 minutes. Hospital course This is a 68 year-old male who was recently admitted with right lung abscess and possible sepsis being closely monitored with multiple consultations. Patient is status postbiopsy which is pending at this time. Cultures negative thus far and will continue on oral Augmentin on discharge with close outpatient follow-up with primary care provider with pulmonary with arrangements for oncology outpatient. Patient is afebrile with no reports of chest pain or shortness of breath and would like to discharge home. Currently awaiting biopsy and will need follow-up arranged. Patient will require oxygen on discharge to manage COPD. Please refer to other consultation notes for further HPI. Currently no reports of chest pain, no worsening shortness of breath, or palpitations. Patient is afebrile. No reports of nausea or vomiting and patient is tolerating diet. Patient will be discharged home today. Guarded prognosis 07/21/2024 Patient seen and evaluated this morning with case management following arranging for discharge planning with oxygen which was unable to be arranged yesterday evening and will be going home with oxygen to manage COPD. Physical exam: Gen: This is a 68-year-old male who is awake, alert and oriented x 3, well- developed elderly appearing, thin built HEENT: Head is atraumatic, normocephalic. Pupils equal, round. Sclerae is anicteric. NECK: Supple. No JVD. No lymphadenopathy. No thyromegaly. LUNGS: Diminished breath sounds bilaterally otherwise clear to auscultation. No wheezes or rhonchi. No intercostal retractions. HEART: S1, S2 are muffled ABDOMEN: Soft. Bowel sounds are present. No masses. No tenderness. EXTREMITIES: No pedal edema. No calf tenderness. NEUROLOGICAL: Patient is awake, alert and oriented x3. Cranial nerves 2 through 12 are grossly intact. Please refer to medication reconciliation sheet for a list of medications. The impression and plan of care has been dictated by Debbie Valencia, Nurse Practitioner as directed. Dr. Tamayo,, I have performed a history and examination and MDM of this patient, discussed the same with the dictator, and agree with the dictator's assessment and plan as written ,documented as a scribe. Based on total visit time, I have performed more than 50% of the visit. Patient Condition at Discharge: Fair Plan - Discharge Summary Discharge Rx Participant: Yes New Discharge Prescriptions: New Amoxic-Pot Clav 875-125Mg [Augmentin 875-125] 1 tab PO Q12HR 10 Days #20 tab Nicotine 14Mg/24Hr Patch [Habitrol] 1 patch TRANSDERM DAILY #30 patch Mag Hydrox/Al Hydrox/Simeth [Maalox] 15 ml PO Q6HR PRN ml PRN Reason: Indigestion Calcium Carbonate [Tums] 1,000 mg PO Q4HR PRN tab PRN Reason: Dyspepsia Folic Acid 1 mg PO DAILY #30 tab Famotidine [Pepcid] 20 mg PO BID #60 tab Acetaminophen Tab [Tylenol] 650 mg PO Q6HR PRN tab PRN Reason: Mild Pain Or Fever > 100.5 Continue Pioglitazone [Actos] 45 mg PO DAILY Glimepiride [Amaryl] 1 mg PO HS Aspirin 81 mg PO DAILY Atorvastatin [Lipitor] 80 mg PO HS Albuterol Sulfate [Albuterol Sulfate Hfa] 2 puff INHALATION RT-Q4H PRN PRN Reason: Shortness Of Breath Empagliflozin [Jardiance] 25 mg PO DAILY Discontinued lisinopriL [Zestril] 5 mg PO DAILY Discharge Medication List Glimepiride [Amaryl] 1 mg PO HS 04/30/18 [History] Pioglitazone [Actos] 45 mg PO DAILY 04/30/18 [History] Aspirin 81 mg PO DAILY 10/19/20 [History] Empagliflozin [Jardiance] 25 mg PO DAILY 10/19/20 [History] Atorvastatin [Lipitor] 80 mg PO HS 07/14/24 [History] Albuterol Sulfate [Albuterol Sulfate Hfa] 2 puff INHALATION RT-Q4H PRN 07/16/24 [History] Acetaminophen Tab [Tylenol] 650 mg PO Q6HR PRN tab 07/20/24 [Rx] Amoxic-Pot Clav 875-125Mg [Augmentin 875-125] 1 tab PO Q12HR 10 Days #20 tab 07/20/24 [Rx] Calcium Carbonate [Tums] 1,000 mg PO Q4HR PRN tab 07/20/24 [Rx] Famotidine [Pepcid] 20 mg PO BID #60 tab 07/20/24 [Rx] Folic Acid 1 mg PO DAILY #30 tab 07/20/24 [Rx] Mag Hydrox/Al Hydrox/Simeth [Maalox] 15 ml PO Q6HR PRN ml 07/20/24 [Rx] Nicotine 14Mg/24Hr Patch [Habitrol] 1 patch TRANSDERM DAILY #30 patch 07/20/24 [Rx] Follow up Appointment(s)/Referral(s): Neo Guardado MD [Primary Care Provider] - 1-2 days Art Florian MD [STAFF PHYSICIAN] - 1 Week [facility] [NON-STAFF] - Juan Jose Nelson MD [STAFF PHYSICIAN] - 07/24/24 10:45 am Activity/Diet/Wound Care/Special Instructions: Activity limited until follow-up Follow-up with primary care provider charge Follow-up with oncology outpatient regarding biopsy report Follow-up with pulmonary outpatient Patient will require 2 L of oxygen to manage COPD on discharge Discharge Disposition: HOME SELF-CARE
[2024-07-21 10:43] VITALS: BP 98/57; PULSE 108; RESP 18; TEMP 98.5
[2024-07-21 11:40] LABS: Glucose,Whole Blood 191 mg/dL (70-110)
--- NOTE | 2024-07-21 13:44 | P.PN ---
Subjective Progress Note Date: 07/21/24 Principal diagnosis: Reason for follow-up is pneumonia Patient is a 68-year-old male with a past medical history significant for diabetes mellitus hypertension hyperlipidemia coronary artery disease did have a right upper lobe mass and concern for possible postobstructive pneumonia prompted this admission On today's evaluation that is 07/21/2024, Patient is afebrile patient is currently on 2 L nasal oxygen and denies having any shortness of breath, the patient denies any chest pain, cough decrease in intensity , the patient denies any nausea vomiting did not have any abdominal pain and no diarrhea. Patient white count is 44.34, creatinine 0.53 sputum with Pseudomonas aeruginosa . Objective - Vital Signs Vital signs: Vital Signs Temp 98.5 F 07/21/24 09:10 Pulse 108 H 07/21/24 09:10 Resp 18 07/21/24 09:10 BP 98/57 07/21/24 09:10 Pulse Ox 98 07/21/24 09:10 FiO2 Intake & Output 07/20/24 07/21/24 07/21/24 18:59 06:59 18:59 Intake Total 1100 860 480 Output Total 575 600 650 Balance 525 260 -170 Weight 79.9 kg Intake: IV 20 20 Invasive Line 1 20 20 Oral 1080 840 480 Output: Urine 575 600 650 Other: Voiding Method Urinal Urinal Urinal # Bowel Movements 1 - Exam GENERAL DESCRIPTION: An elderly male lying in bed in no distress RESPIRATORY SYSTEM: Unlabored breathing , decreased breath sounds at bases HEART: S1 S2 regular rate and rhythm , ABDOMEN: Soft , no tenderness EXTREMITIES: No edema feet - Labs CBC & Chem 7: 07/21/24 07:00 07/21/24 07:00 Labs: Abnormal Lab Results - Last 24 Hours (Table) 07/20/24 07/20/24 07/21/24 Range/Units 16:52 20:05 07:00 WBC 44.34 H (4.50-10.00) 10*3/uL RBC 3.22 L (4.40-5.60) 10*6/uL Hgb 10.1 L (13.0-17.0) g/dL Hct 31.8 L (39.6-50.0) % MCV 98.8 H (80.0-97.0) fL MCHC 31.8 L (32.0-37.0) g/dL Immature Gran # 1.52 H (0.00-0.04) 10*3/uL Sodium (137-145) mmol/L Chloride (98-107) mmol/L Carbon Dioxide (22-30) mmol/L Creatinine (0.66-1.25) mg/dL Glucose (74-99) mg/dL POC Glucose (mg/dL) 221 H 227 H (70-110) mg/dL 07/21/24 07/21/24 Range/Units 07:00 11:36 WBC (4.50-10.00) 10*3/uL RBC (4.40-5.60) 10*6/uL Hgb (13.0-17.0) g/dL Hct (39.6-50.0) % MCV (80.0-97.0) fL MCHC (32.0-37.0) g/dL Immature Gran # (0.00-0.04) 10*3/uL Sodium 136 L (137-145) mmol/L Chloride 96 L (98-107) mmol/L Carbon Dioxide 33 H (22-30) mmol/L Creatinine 0.53 L (0.66-1.25) mg/dL Glucose 69 L (74-99) mg/dL POC Glucose (mg/dL) 191 H (70-110) mg/dL Microbiology - Last 24 Hours (Table) 07/16/24 17:46 Gram Stain - Final Sputum Sputum Culture - Final Pseudomonas aeruginosa Assessment and Plan (1) Pneumonia Status: Acute Code(s): J18.9 - PNEUMONIA, UNSPECIFIED ORGANISM SNOMED Code(s): 732307721 (2) Leukocytosis Status: Acute Code(s): D72.829 - ELEVATED WHITE BLOOD CELL COUNT, UNSPECIFIED SNOMED Code(s): 076163265 (3) Sepsis Status: Acute Code(s): A41.9 - SEPSIS, UNSPECIFIED ORGANISM SNOMED Code(s): 70846916 Plan: 1patient presenting to the hospital with sepsis in this patient who did have a hypotension tachycardia elevated white count meeting criteria for SIRS/sepsis source right upper lobe possible post obstructive pneumonia in this patient with concern for possible malignancy and the patient is status postbiopsy. 2sputum culture currently growing Pseudomonas aeruginosa that is sensitive pathogen 3patient persistent leukocytosis could be steroid related as evidence of any worsening infection patient is feeling better on IV Zosyn he will finish therapy with oral Cipro this was discussed with REHABILITATION TEACHER for admitting team Dictation was produced using [email or web address] dictation software. please excuse any grammatical, word or spelling errors. Time with Patient: Less than 30
[2024-07-21 14:44] LABS: Band Neutrophils % 2 %; Eosinophils # (M) 0.44 k/uL (0-0.7); Monocytes # (M) 2.22 k/uL (0-1.0); Neutrophils # (M) 38.57 k/uL (1.3-7.7); Neutrophils % (M) 85 %; Nucleated Red Blood Cells 0 /100 WBC (0-0); Total Cells Counted 100
[2024-07-21 14:45] LABS: RBC Morphology Normal
--- NOTE | 2024-07-21 15:18 | P.PN ---
Subjective Progress Note Date: 07/21/24 This is a 68-year-old male patient with a large right upper lobe mass who initially presented to my office on 07/10/2024 for ongoing respiratory complaints of cough and episodes of hemoptysis has been going on for the past several months. The patient was coughing on some bright light blood and small amounts. He was also getting progressively more short of breath. Chest x-ray was done on outpatient basis and the patient was found to have a masslike consolidation in the right upper lobe along with regions of gas and fluid. The findings are highly suspicious for malignancy. Abscess was considered to be less likely. There was also some areas of consolidation and groundglass airspace around the right upper lobe which was concerning for infection versus lymphangitic spread. The patient also had another 2.3 cm hypodense lesion in the right hepatic lobe consistent with cysts. There was also asymmetry in the adrenal glands. He was having constitutional symptoms with around 12 pounds weight loss over the past several months he is a chronic smoker smokes around 1 pack of cigarettes a day. He retired last year. 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 No history of any recurrent pneumonias. No fever. No chills. He is known to have coronary artery disease and has undergone previous coronary stenting of the LAD back in 2020, maintained on a combination of aspirin and Plavix. He also has bicuspid aortic valve with mild aortic stenosis and moderate aortic regurgitation based on the JENNIFER that was done few years back. The patient was supposed to have an outpatient bronchoscopy and preoperatively, the patient was noted to be hypotensive. His systolic blood pressure was in the low 80s and high 70s. He was also having sinus tachycardia. Based on that, the procedure was canceled and the patient was admitted to the hospital via emergency department. Blood work shows a white cell count of 55.7 with a hemoglobin of 11.1 and a platelet count of 374. The patient had 90% neutrophilia. Normal coagulation profile. Normal renal function. Normal LFTs. Troponin was less than 0.01. Procalcitonin level was less than 0.2. UA was negative. Viral screen was negative. The patient was given IV fluids and his blood pressure responded nicely. He was started on a combination of Zosyn and vancomycin. This morning, the patient seems to be quite comfortable on 2 L of oxygen by nasal cannula. The white cell count was essentially on the decline and based on that it was decided to proceed with a bronchoscopy. A CTA of the chest was done yesterday in the emergency department that showed no evidence of any pulm embolism. There was redemonstration of a large right upper lobe masslike consolidation with regions of gas and fluid and soft tissue. This could be potentially necrotic neoplasm although an irregular pulmonary abscess cannot be completely ruled out. There is also increase in size of few new scattered pulmonary nodules throughout the lung concerning for metastases. On 07/18/2024, the patient is post bronchoscopy and right upper lobe biopsy. Also, a BAL of the right upper lobe was done. Meanwhile, the sputum sample was positive for gram-negative bacillus and the bronchioloalveolar lavage from the right upper lobe results are still pending. The patient remains IV Zosyn. Remains on oxygen at 3 L with a pulse ox of 99%. Afebrile at this point. Hemodynamically stable. The white cell count remains elevated at 54 with the hemoglobin of 11.3 and a platelet count of 392. Sodium level is at 135, BUN 11 with a creatinine 0.5. Procalcitonin was less than 0.2. TSH is at 2.3.CAT scan of the abdomen and pelvis was also done and the patient was found to have hypodense right hepatic lobe lesion measuring 3 cm, right adrenal nodule measuring 3 cm. Both are suggestive of metastases. 07/19/2024, the patient is feeling well. Pulse ox is 97% on 2 L of oxygen by nasal cannula. On room air oxygen, his pulse ox drops of 87% and the patient will need home O2. The sputum sample was positive for gram-negative bacillus. Final culture still pending. Meanwhile, the bronchoalveolar lavage of the right upper lobe has not shown any microbial growth. Noted at time of the bronchoscopy, the patient was already receiving antibiotics and he remains on IV Zosyn. Rest of the medications are unchanged. Final pathology from the right upper lobe biopsies are still not available. The white cell count is down to 38.6. Hemoglobin is at 10.6. Electrolytes are normal. BUN is at 8 with a creatinine of 0.4. Tolerating diet. No altered mentation. No other complaints otherwise. The patient is seen today July 20, 2024 in follow-up on the selective care unit. He is currently sitting up in a chair at the bedside. Awake and alert in no acute distress. Maintaining good O2 saturations in the mid 90s on 2 L/min per nasal cannula. Has been afebrile. Hemodynamically stable. Lung biopsy results are pending. Follow-up chest x-ray shows persistent right midlung mass/neoplasm. No acute pulmonary process. Sputum culture positive for Pseudomonas aeruginosa. He remains on Zosyn. Continued on albuterol as needed. Heparin for DVT prophylaxis. NicoDerm patch in place. White count 39.7. Hemoglobin 10.5. Platelets 368. Sodium 134. Potassium 4.0. Bicarb 32. BUN 9. Creatinine 0.59. Glucose 81. The patient is seen today July 21, 2024 in follow-up on the selective care unit. He is currently sitting up in a chair. Awake and alert in no acute distress. Maintaining good O2 saturations in the 90s on 2 L/min per nasal cannula. He is afebrile. Hemodynamically stable. Sputum culture was positive for Pseudomonas aeruginosa. Bronchial wash cultures revealed no growth. White count 44.3. Hemoglobin 10.1. Platelets 387. Sodium 136. Potassium 3.9. Bicarb 33. BUN 11. Creatinine 0.53. Glucose 191. He is continued on albuterol nebulized treatments as needed. Heparin for DVT prophylaxis. NicoDerm patch in place. Antibiotics in the form of Zosyn. Objective - Vital Signs Vital signs: Vital Signs Temp 98.5 F 07/21/24 09:10 Pulse 108 H 07/21/24 09:10 Resp 18 07/21/24 09:10 BP 98/57 07/21/24 09:10 Pulse Ox 98 07/21/24 09:10 FiO2 Intake & Output 07/20/24 07/21/24 07/21/24 18:59 06:59 18:59 Intake Total 1100 860 480 Output Total 575 600 650 Balance 525 260 -170 Weight 79.9 kg Intake: IV 20 20 Invasive Line 1 20 20 Oral 1080 840 480 Output: Urine 575 600 650 Other: Voiding Method Urinal Urinal Urinal # Bowel Movements 1 - Exam GENERAL EXAM: Alert, 68-year-old male, up in a chair, on 2 L nasal cannula, comfortable in no apparent distress. HEAD: Normocephalic. EYES: Normal reaction of pupils, equal size. NOSE: Clear with pink turbinates. THROAT: No erythema or exudates. NECK: No masses, no JVD. CHEST: No chest wall deformity. LUNGS: Equal air entry with bilateral scattered rhonchi. CVS: S1 and S2 normal with no audible murmur, regular rhythm. ABDOMEN: No hepatosplenomegaly, normal bowel sounds, no guarding or rigidity. SPINE: No scoliosis or deformity SKIN: No rashes CENTRAL NERVOUS SYSTEM: No focal deficits, tone is normal in all 4 extremities. EXTREMITIES: There is no peripheral edema. No clubbing, no cyanosis. Peripheral pulses are intact. - Labs CBC & Chem 7: 07/21/24 07:00 07/21/24 07:00 Labs: Abnormal Lab Results - Last 24 Hours (Table) 07/20/24 07/20/24 07/21/24 Range/Units 16:52 20:05 07:00 WBC 44.34 H (4.50-10.00) 10*3/uL RBC 3.22 L (4.40-5.60) 10*6/uL Hgb 10.1 L (13.0-17.0) g/dL Hct 31.8 L (39.6-50.0) % MCV 98.8 H (80.0-97.0) fL MCHC 31.8 L (32.0-37.0) g/dL Immature Gran # 1.52 H (0.00-0.04) 10*3/uL Neutrophils # (Manual) 38.57 H (1.3-7.7) k/uL Monocytes # (Manual) 2.22 H (0-1.0) k/uL Sodium (137-145) mmol/L Chloride (98-107) mmol/L Carbon Dioxide (22-30) mmol/L Creatinine (0.66-1.25) mg/dL Glucose (74-99) mg/dL POC Glucose (mg/dL) 221 H 227 H (70-110) mg/dL 07/21/24 07/21/24 Range/Units 07:00 11:36 WBC (4.50-10.00) 10*3/uL RBC (4.40-5.60) 10*6/uL Hgb (13.0-17.0) g/dL Hct (39.6-50.0) % MCV (80.0-97.0) fL MCHC (32.0-37.0) g/dL Immature Gran # (0.00-0.04) 10*3/uL Neutrophils # (Manual) (1.3-7.7) k/uL Monocytes # (Manual) (0-1.0) k/uL Sodium 136 L (137-145) mmol/L Chloride 96 L (98-107) mmol/L Carbon Dioxide 33 H (22-30) mmol/L Creatinine 0.53 L (0.66-1.25) mg/dL Glucose 69 L (74-99) mg/dL POC Glucose (mg/dL) 191 H (70-110) mg/dL Microbiology - Last 24 Hours (Table) 07/16/24 17:46 Gram Stain - Final Sputum Sputum Culture - Final Pseudomonas aeruginosa Assessment and Plan Assessment: Right upper lobe mass. Initial CAT scan of the chest showed a 12.4 x 9 cm mass occupying the majority of the right upper lobe extending into the right hilum. Within the mass, there is areas of fluid and gas and there is also some surrounding area of consolidation. Obviously, the findings are highly suspicious for necrotic neoplasm involving the right upper lobe although the pos sibility of a superinfection or a lung abscess cannot be completely ruled out. Bronchoscopy with biopsies performed 07/17/2024. Results still pending. Repeat CAT scan of the chest was done redemonstrating the same findings in the right upper lobe with few scattered nodular densities consistent with metastatic disease. As mentioned, findings are highly suspicious for malignancy especially the patient has been having episodes of hemoptysis recalcitrant symptoms of weight loss and worsening shortness of breath. The sputum sample was showing Pseudomonas aeruginosa. Remains on Zosyn Hepatic and adrenal lesions, 3 cm each, please refer to the CAT scan of the abdomen pelvis. Consider metastases. Suspect right upper lobe pneumonia abscess in addition to a mass. Sputum sample is positive for Pseudomonas aeruginosa. Hemoptysis secondary to above Hypotension/tachycardia. Rule out underlying infection/sepsis, responded to IV fluids. Acute leukocytosis, improving. Procalcitonin level is not elevated. This could be potentially also reactive/leukemoid reaction to malignancy Chronic smoker, carries [id number] smoking history. Coronary artery disease with previous coronary stenting of the LAD back in 2020 History of bicuspid aortic valve with mild aortic stenosis and moderate aortic regurgitation Hyperlipidemia Diabetes mellitus type 2 COPD, FEV1 of 41% of predicted, 1.37 L. Plan: The patient was seen and evaluated Labs and medications reviewed Pathology still pending Cleared for discharge Continue albuterol as needed Antibiotics per ID service Again educated regarding complete smoking cessation NicoDerm patch in place Keep his appointment with Dr. Nelson on 07/24/2024 I have personally seen and examined the patient, performed the documentation and the assessment and plan as written. Number of minutes spent on the visit: 10 Dictation was produced using [employer] dictation software. Please excuse any grammatical, word or spelling errors.
== END 2024-07-21 13:31 | disposition home or self-care (01) | DRG 853 ==
LOC: EC 15:04 → 3SCARD 18:14
PROVIDERS: ADMIT Hospitalist; ATTEND Hospitalist
PROC: 8E0W8CZ Robotic Assisted Procedure of Trunk Region, Via Natural or Artificial Opening Endoscopic (ICD-10-PCS; principal; 2024-07-17 11:00)
PROC: 0BBG8ZX Excision of Left Upper Lung Lobe, Via Natural or Artificial Opening Endoscopic, Diagnostic (ICD-10-PCS; principal; 2024-07-17 11:00)
PROC: 0B9C8ZX Drainage of Right Upper Lung Lobe, Via Natural or Artificial Opening Endoscopic, Diagnostic (ICD-10-PCS; principal; 2024-07-17 11:00)
DX: A41.9 Sepsis, unspecified organism (principal); J15.1 Pneumonia due to Pseudomonas; J85.1 Abscess of lung with pneumonia; J96.01 Acute respiratory failure with hypoxia; J44.0 Chronic obstructive pulmonary disease with (acute) lower respiratory infection; D50.9 Iron deficiency anemia, unspecified; E11.9 Type 2 diabetes mellitus without complications; I10 Essential (primary) hypertension; Q23.81 Bicuspid aortic valve; R63.4 Abnormal weight loss; I35.2 Nonrheumatic aortic (valve) stenosis with insufficiency; K76.9 Liver disease, unspecified; R04.2 Hemoptysis; I95.9 Hypotension, unspecified; R59.0 Localized enlarged lymph nodes; D72.823 Leukemoid reaction; E78.5 Hyperlipidemia, unspecified; F17.210 Nicotine dependence, cigarettes, uncomplicated; I25.10 Atherosclerotic heart disease of native coronary artery without angina pectoris; Z53.9 Procedure and treatment not carried out, unspecified reason; Z79.82 Long term (current) use of aspirin; Z79.84 Long term (current) use of oral hypoglycemic drugs; Z79.899 Other long term (current) drug therapy; Z95.5 Presence of coronary angioplasty implant and graft; Z28.21 Immunization not carried out because of patient refusal
CPT/HCPCS: 31624; 31628; 31629; 36415; 70450; 71045; 71275; 74176; 80048; 80053; 81003; 82607; 82728; 82746; 83036; 83540; 83550; 83605; 84145; 84443; 84484; 85025; 85610; 85730; 87040; 87070; 87077; 87102; 87116; 87186; 87205; 87206; 87636; 88108; 88305; 88341; 88342; 93005; 94640; 94760; 96361; 96365; 96366; 96367; 96375; 99285